=== PATIENT | female | born 1965 | race Asian ===

== ENCOUNTER 2016-11-09 23:54 | Emergency (ER) | payer OTHER ==
[~2016-11-09] VITALS: Ht 157.5 cm; Wt 47.7 kg
[~2016-11-09 23:54] MED LIST: OLAN5TAB2 PO
[2016-11-09 23:59] VITALS: BP 108/62
[2016-11-10] MEDS ORDERED: OLANZapine 5 MG TABLET PO ONE (03:00)
== END 2016-11-10 03:02 | disposition home or self-care (01) ==
LOC: EMS 23:56
DX: F20.9 Schizophrenia, unspecified (principal)
CPT/HCPCS: 99284

== ENCOUNTER 2016-11-15 18:32 | Inpatient (IN) | payer MEDICAID, OTHER ==
[~2016-11-15] VITALS: Ht 157.5 cm; Wt 49.6 kg
[2016-11-15] MEDS ORDERED: HALOPERIDOL 5 MG TABLET PO PRN (19:45)
[2016-11-15] MEDS ORDERED: LORazepam 2 MG TABLET PO PRN (19:45)
[2016-11-15] MEDS ORDERED: INFLUENZA VIRUS VACCINE QVS 2016-17 (3YR+)/PF 60 MCG/0.5 ML SYRINGE IM ONE (19:45)
[2016-11-15] MEDS ORDERED: ZOLPIDEM TARTRATE 10 MG TABLET PO PRN (19:45)
[2016-11-15 19:51] VITALS: BP 132/81
[2016-11-15 20:09] VITALS: BP 126/72
[2016-11-16 01:34] VITALS: BP 90/60
[2016-11-16 08:36] VITALS: BP 105/66
[2016-11-16] MEDS ORDERED: DIVALPROEX SODIUM 500 MG DR TABLET PO SCH (10:15)
[2016-11-16] MEDS ORDERED: OLAN7.5T2 PO (12:26)
[2016-11-16] MEDS ORDERED: DIVA500T35 PO (12:27)
[2016-11-16] MEDS ORDERED: OLANZapine 7.5 MG TABLET PO SCH (21:00)
== END 2016-11-16 14:32 | disposition home or self-care (01) | DRG 750 ==
LOC: B3A 19:38 → EDSTATUS 19:42
PROVIDERS: ADMIT Psychiatry & Neurology Psychiatry; ATTEND Psychiatry & Neurology Psychiatry
DX: F20.0 Paranoid schizophrenia (principal); D64.9 Anemia, unspecified; F25.9 Schizoaffective disorder, unspecified; F41.9 Anxiety disorder, unspecified; Z28.21 Immunization not carried out because of patient refusal
CPT/HCPCS: 90471

== ENCOUNTER 2016-11-19 20:05 | Emergency (ER) | payer MEDICAID, OTHER ==
[~2016-11-19] VITALS: Ht 162.6 cm; Wt 50.0 kg
[~2016-11-19 20:05] MED LIST changes: +DIVA500T35 PO; +OLAN7.5T2 PO
[2016-11-19 20:09] VITALS: BP 141/75
[2016-11-19 20:27] LABS: BASOPHILS % (AUTO) 0.9 % (0.0-2.0); EOSINOPHILS % (AUTO) 4.5 % (1.0-6.0); HEMATOCRIT 31.9 % (36-46); HEMOGLOBIN 10.4 g/dL (12.0-16.0); LYMPHOCYTES # (AUTO) 1.7 K/uL (1.0-4.8); LYMPHOCYTES % (AUTO) 33.5 % (22.0-44.0); MEAN CORPUSCULAR HEMOGLOBIN 24.5 pg (26.0-34.0); MEAN CORPUSCULAR HGB CONC 32.5 G/dL (31.0-37.0); MEAN CORPUSCULAR VOLUME 75 fL (80-100); MONOCYTES # (AUTO) 0.3 K/uL (0.1-1.0); MONOCYTES % (AUTO) 5.9 % (2.0-9.0); NEUTROPHILS # (AUTO) 2.8 K/uL (1.8-7.7); NEUTROPHILS % (AUTO) 55.2 % (40.0-70.0); PLATELET COUNT (AUTO) 294 K/uL (150-450); RED BLOOD CELL COUNT(AUTO) 4.24 MIL/uL (4.00-5.20); RED CELL DISTRIBUTION WIDTH 14.8 % (11.5-14.5); WHITE BLOOD COUNT (AUTO) 5.1 K/uL (4.5-11.0)
[2016-11-19 20:35] LABS: ANION GAP 4 mmol/L (8-16); CALCIUM, TOTAL 8.7 mg/dL (8.8-10.5); CARBON DIOXIDE 30 mmol/L (22-29); CHLORIDE 105 mmol/L (98-107); CREATININE 0.65 mg/dL (0.60-1.30); GLOMERULAR FILTR. RATE CALC > 60 mL/min (>60); SODIUM SERUM 139 mmol/L (136-145); UREA NITROGEN, BLOOD 10 mg/dL (7-18)
[2016-11-19 20:41] LABS: ALANINE AMINOTRANSFERASE 23 U/L (12-78); ALBUMIN 3.7 g/dL (3.4-5.0); ASPARTATE AMINOTRANSFERASE 20 U/L (15-37); BILIRUBIN,TOTAL 0.4 mg/dL (0.1-1.0)
[2016-11-19 21:01] LABS: RBC MORPHOLOGY COMMENT ABNORMAL RBC MORPH
[2016-11-19] MEDS ORDERED: OLANZapine 5 MG TABLET PO ONE (23:45)
== END 2016-11-20 02:05 | disposition left against medical advice (07) ==
LOC: EMS 20:07
DX: F20.0 Paranoid schizophrenia (principal); R44.0 Auditory hallucinations
CPT/HCPCS: 36415; 80053; 85025; 99284; G0480

== ENCOUNTER 2016-11-25 22:00 | Inpatient (IN) | payer MEDICAID, OTHER ==
[~2016-11-25] VITALS: Ht 162.6 cm; Wt 48.3 kg
[~2016-11-25 22:00] MED LIST changes: -OLAN5TAB2 PO
[2016-11-26] MEDS ORDERED: ZOLPIDEM TARTRATE 10 MG TABLET PO PRN (08:00)
[2016-11-26] MEDS ORDERED: HALOPERIDOL 5 MG TABLET PO PRN (08:00)
[2016-11-26] MEDS ORDERED: LORazepam 1 MG TABLET PO PRN (08:00)
[2016-11-26 12:42] VITALS: BP 80/37
[2016-11-26] MEDS ORDERED: INFLUENZA VIRUS VACCINE QVS 2016-17 (3YR+)/PF 60 MCG/0.5 ML SYRINGE IM ONE (13:00)
[2016-11-26] MEDS: DIVALPROEX SODIUM 500 MG DR TABLET PO SCH (17:00)
[2016-11-26 18:15] VITALS: BP 110/63
[2016-11-26 21:06] VITALS: BP 108/65
[2016-11-26] MEDS: OLANZapine 7.5 MG TABLET PO SCH (21:07)
[2016-11-27 07:00] VITALS: BP 106/57
[2016-11-27 07:03] VITALS: BP 100/61
[2016-11-27 08:25] LABS: ALANINE AMINOTRANSFERASE 16 U/L (12-78); ALBUMIN 3.1 g/dL (3.4-5.0); ANION GAP 7 mmol/L (8-16); ASPARTATE AMINOTRANSFERASE 14 U/L (15-37); BILIRUBIN,TOTAL 0.2 mg/dL (0.1-1.0); CALCIUM, TOTAL 8.3 mg/dL (8.8-10.5); CARBON DIOXIDE 27 mmol/L (22-29); CHLORIDE 109 mmol/L (98-107); CREATININE 0.86 mg/dL (0.60-1.30); GLOMERULAR FILTR. RATE CALC > 60 mL/min (>60); POTASSIUM 4.1 mmol/L (3.5-5.1); SODIUM SERUM 143 mmol/L (136-145); TOTAL PROTEIN, SERUM 6.5 g/dL (6.4-8.2); UREA NITROGEN, BLOOD 16 mg/dL (7-18)
[2016-11-27 08:29] LABS: BASOPHILS % (AUTO) 0.9 % (0.0-2.0); EOSINOPHILS % (AUTO) 4.7 % (1.0-6.0); HEMOGLOBIN 10.3 g/dL (12.0-16.0); LYMPHOCYTES # (AUTO) 1.5 K/uL (1.0-4.8); LYMPHOCYTES % (AUTO) 33.9 % (22.0-44.0); MEAN CORPUSCULAR HEMOGLOBIN 24.1 pg (26.0-34.0); MEAN CORPUSCULAR HGB CONC 32.3 G/dL (31.0-37.0); MEAN CORPUSCULAR VOLUME 75 fL (80-100); MONOCYTES # (AUTO) 0.3 K/uL (0.1-1.0); MONOCYTES % (AUTO) 6.9 % (2.0-9.0); NEUTROPHILS # (AUTO) 2.4 K/uL (1.8-7.7); NEUTROPHILS % (AUTO) 53.6 % (40.0-70.0); PLATELET COUNT (AUTO) 298 K/uL (150-450); RED BLOOD CELL COUNT(AUTO) 4.29 MIL/uL (4.00-5.20); RED CELL DISTRIBUTION WIDTH 14.6 % (11.5-14.5); WHITE BLOOD COUNT (AUTO) 4.5 K/uL (4.5-11.0)
[2016-11-27 08:55] VITALS: BP 97/53
[2016-11-27] MEDS: DIVALPROEX SODIUM 500 MG DR TABLET PO SCH ×2 (09:19→16:06)
[2016-11-27 12:48] LABS: RBC MORPHOLOGY COMMENT ABNORMAL RBC MORPH
[2016-11-27 13:13] VITALS: BP 103/60
[2016-11-27 16:11] VITALS: BP 103/63
[2016-11-27 20:30] VITALS: BP 103/65
[2016-11-27] MEDS: OLANZapine 7.5 MG TABLET PO SCH (20:35)
[2016-11-28 06:56] VITALS: BP 103/61
[2016-11-28] MEDS: DIVALPROEX SODIUM 500 MG DR TABLET PO SCH ×2 (08:03→16:21)
[2016-11-28 08:53] VITALS: BP 133/52
[2016-11-28 17:51] VITALS: BP 101/60
[2016-11-28] MEDS: OLANZapine 7.5 MG TABLET PO SCH (20:02)
[2016-11-29 06:43] VITALS: BP 104/58
[2016-11-29 08:32] VITALS: BP 100/72
[2016-11-29] MEDS: DIVALPROEX SODIUM 500 MG DR TABLET PO SCH ×2 (09:54→16:31)
[2016-11-29 16:10] VITALS: BP 125/60
[2016-11-29] MEDS: OLANZapine 7.5 MG TABLET PO SCH (20:49)
[2016-11-30 06:30] VITALS: BP 103/60
[2016-11-30] MEDS: DIVALPROEX SODIUM 500 MG DR TABLET PO SCH ×2 (08:11→16:03)
[2016-11-30 08:22] VITALS: BP 108/59
[2016-11-30 16:21] VITALS: BP 93/54
[2016-11-30] MEDS: OLANZapine 7.5 MG TABLET PO SCH (20:03)
[2016-12-01 08:40] VITALS: BP 98/52
[2016-12-01] MEDS: DIVALPROEX SODIUM 500 MG DR TABLET PO SCH (08:57)
== END 2016-12-01 13:43 | disposition home or self-care (01) | DRG 750 ==
LOC: B3A 11-26 08:07
PROVIDERS: ADMIT Psychiatry & Neurology Psychiatry; ATTEND Psychiatry & Neurology Psychiatry
DX: F20.9 Schizophrenia, unspecified (principal); I95.9 Hypotension, unspecified; F25.9 Schizoaffective disorder, unspecified; D64.9 Anemia, unspecified; F20.0 Paranoid schizophrenia; F41.9 Anxiety disorder, unspecified; Z59.0 Homelessness; Z28.21 Immunization not carried out because of patient refusal

== ENCOUNTER 2016-11-26 12:52 | Emergency (ER) | payer MEDICAID, OTHER ==
[~2016-11-26] VITALS: Ht 154.9 cm; Wt 60.0 kg
[2016-11-26 13:23] LABS: BASOPHILS % (AUTO) 0.6 % (0.0-2.0); EOSINOPHILS % (AUTO) 3.6 % (1.0-6.0); HEMATOCRIT 33.2 % (36-46); HEMOGLOBIN 10.7 g/dL (12.0-16.0); LYMPHOCYTES # (AUTO) 1.1 K/uL (1.0-4.8); LYMPHOCYTES % (AUTO) 25.1 % (22.0-44.0); MEAN CORPUSCULAR HEMOGLOBIN 24.2 pg (26.0-34.0); MEAN CORPUSCULAR HGB CONC 32.3 G/dL (31.0-37.0); MEAN CORPUSCULAR VOLUME 75 fL (80-100); MONOCYTES # (AUTO) 0.3 K/uL (0.1-1.0); MONOCYTES % (AUTO) 7.5 % (2.0-9.0); NEUTROPHILS # (AUTO) 2.8 K/uL (1.8-7.7); NEUTROPHILS % (AUTO) 63.2 % (40.0-70.0); PLATELET COUNT (AUTO) 316 K/uL (150-450); RED BLOOD CELL COUNT(AUTO) 4.45 MIL/uL (4.00-5.20); RED CELL DISTRIBUTION WIDTH 14.5 % (11.5-14.5); WHITE BLOOD COUNT (AUTO) 4.5 K/uL (4.5-11.0)
[2016-11-26 13:35] LABS: ANION GAP 6 mmol/L (8-16); CALCIUM, TOTAL 9.1 mg/dL (8.8-10.5); CARBON DIOXIDE 33 mmol/L (22-29); CHLORIDE 105 mmol/L (98-107); CREATININE 0.91 mg/dL (0.60-1.30); GLOMERULAR FILTR. RATE CALC > 60 mL/min (>60); POTASSIUM 3.6 mmol/L (3.5-5.1); SODIUM SERUM 144 mmol/L (136-145); UREA NITROGEN, BLOOD 13 mg/dL (7-18)
[2016-11-26 13:41] LABS: ALANINE AMINOTRANSFERASE 18 U/L (12-78); ALBUMIN 3.6 g/dL (3.4-5.0); ASPARTATE AMINOTRANSFERASE 14 U/L (15-37); BILIRUBIN,TOTAL 0.7 mg/dL (0.1-1.0); TOTAL PROTEIN, SERUM 7.3 g/dL (6.4-8.2)
[2016-11-26] MEDS ORDERED: SODIUM CHLORIDE 0.9% 1,000 ML IV ONE (14:45)
[2016-11-26 17:30] VITALS: BP 112/68
== END 2016-11-26 17:53 | disposition home or self-care (01) ==
LOC: EMS 12:54
DX: E86.0 Dehydration (principal); F20.9 Schizophrenia, unspecified
CPT/HCPCS: 36415; 80053; 80307; 85025; 93005; 96360; 99285; G0480; J7030

== ENCOUNTER 2016-12-04 19:02 | Emergency (ER) | payer OTHER ==
[~2016-12-04] VITALS: Ht 162.6 cm; Wt 47.7 kg
[2016-12-04 20:45] VITALS: BP 110/60
[2016-12-04] MEDS: OLANZapine 5 MG TABLET PO ONE ×3 (21:04→21:13)
== END 2016-12-04 21:42 | disposition home or self-care (01) ==
LOC: EMS 19:05
DX: F20.0 Paranoid schizophrenia (principal); R51 Headache
CPT/HCPCS: 99284

== ENCOUNTER 2016-12-06 06:47 | Emergency (ER) | payer OTHER ==
[~2016-12-06] VITALS: Ht 162.6 cm; Wt 47.5 kg
[2016-12-06 06:51] VITALS: BP 112/65
== END 2016-12-06 07:31 | disposition left against medical advice (07) ==
LOC: EMS 06:48
DX: F20.0 Paranoid schizophrenia (principal)
CPT/HCPCS: 99281

== ENCOUNTER 2016-12-09 20:20 | Emergency (ER) | payer OTHER ==
[~2016-12-09] VITALS: Ht 152.4 cm; Wt 50.0 kg
[2016-12-09 20:22] VITALS: BP 135/86
== END 2016-12-09 20:54 | disposition left against medical advice (07) ==
LOC: EMS 20:21
DX: R44.0 Auditory hallucinations (principal); R52 Pain, unspecified; F20.9 Schizophrenia, unspecified; Z53.21 Procedure and treatment not carried out due to patient leaving prior to being seen by health care provider

== ENCOUNTER 2016-12-14 00:12 | Emergency (ER) | payer OTHER ==
[~2016-12-14] VITALS: Ht 162.6 cm; Wt 47.7 kg
[2016-12-14] MEDS ORDERED: OLANZapine 5 MG TABLET PO ONE (04:30)
[2016-12-14 04:58] VITALS: BP 117/70
== END 2016-12-14 05:00 | disposition home or self-care (01) ==
LOC: EMS 00:15
DX: F20.9 Schizophrenia, unspecified (principal)
CPT/HCPCS: 99284

== ENCOUNTER 2016-12-16 18:48 | Emergency (ER) | payer OTHER ==
[~2016-12-16] VITALS: Ht 162.6 cm; Wt 47.7 kg
[2016-12-16 19:40] LABS: BASOPHILS % (AUTO) 0.8 % (0.0-2.0); EOSINOPHILS % (AUTO) 5.6 % (1.0-6.0); HEMATOCRIT 32.2 % (36-46); HEMOGLOBIN 10.1 g/dL (12.0-16.0); LYMPHOCYTES # (AUTO) 1.9 K/uL (1.0-4.8); LYMPHOCYTES % (AUTO) 31.5 % (22.0-44.0); MEAN CORPUSCULAR HEMOGLOBIN 23.6 pg (26.0-34.0); MEAN CORPUSCULAR HGB CONC 31.6 G/dL (31.0-37.0); MEAN CORPUSCULAR VOLUME 75 fL (80-100); MONOCYTES # (AUTO) 0.4 K/uL (0.1-1.0); MONOCYTES % (AUTO) 6.8 % (2.0-9.0); NEUTROPHILS # (AUTO) 3.3 K/uL (1.8-7.7); NEUTROPHILS % (AUTO) 55.3 % (40.0-70.0); PLATELET COUNT (AUTO) 283 K/uL (150-450); RED BLOOD CELL COUNT(AUTO) 4.29 MIL/uL (4.00-5.20); RED CELL DISTRIBUTION WIDTH 15.7 % (11.5-14.5)
[2016-12-16 20:00] LABS: ANION GAP 6 mmol/L (8-16); CALCIUM, TOTAL 8.4 mg/dL (8.8-10.5); CARBON DIOXIDE 29 mmol/L (22-29); CHLORIDE 106 mmol/L (98-107); CREATININE 0.79 mg/dL (0.60-1.30); GLOMERULAR FILTR. RATE CALC > 60 mL/min (>60); POTASSIUM 3.8 mmol/L (3.5-5.1); SODIUM SERUM 141 mmol/L (136-145); UREA NITROGEN, BLOOD 11 mg/dL (7-18)
[2016-12-16 20:04] LABS: ALANINE AMINOTRANSFERASE 19 U/L (12-78); ALBUMIN 3.5 g/dL (3.4-5.0); ASPARTATE AMINOTRANSFERASE 16 U/L (15-37); BILIRUBIN,TOTAL 0.5 mg/dL (0.1-1.0); TOTAL PROTEIN, SERUM 6.9 g/dL (6.4-8.2)
[2016-12-16 20:26] LABS: VALPROIC ACID 3 mcg/mL (50-100)
[2016-12-16 20:58] LABS: RBC MORPHOLOGY COMMENT ABNORMAL RBC MORPH
[2016-12-16 23:43] VITALS: BP 120/63
[2016-12-17] MEDS ORDERED: OLANZapine 5 MG TABLET PO ONE
== END 2016-12-17 00:03 | disposition home or self-care (01) ==
LOC: EMS 18:56
DX: F20.9 Schizophrenia, unspecified (principal)
CPT/HCPCS: 36415; 80053; 80164; 80307; 85025; 99284; G0480

== ENCOUNTER 2016-12-17 20:34 | Emergency (ER) | payer OTHER ==
[~2016-12-17] VITALS: Ht 162.6 cm; Wt 47.7 kg
[2016-12-17] MEDS ORDERED: OLANZapine 5 MG TABLET PO ONE (22:45)
[2016-12-17] MEDS ORDERED: LORazepam 1 MG TABLET PO ONE (22:45)
[2016-12-18 02:25] VITALS: BP 110/62
== END 2016-12-18 02:25 | disposition home or self-care (01) ==
LOC: EMS 20:41
DX: F20.0 Paranoid schizophrenia (principal)
CPT/HCPCS: 99283; 99284

== ENCOUNTER 2016-12-19 19:46 | Emergency (ER) | payer OTHER ==
[~2016-12-19] VITALS: Ht 167.6 cm; Wt 54.0 kg
[2016-12-20 02:55] VITALS: BP 129/74
[2016-12-20] MEDS ORDERED: ACETAMINOPHEN 500 MG TABLET PO ONE (03:00)
[2016-12-20] MEDS ORDERED: OLANZapine 5 MG TABLET PO ONE (03:00)
== END 2016-12-20 03:13 | disposition home or self-care (01) ==
LOC: EMS 19:48
DX: F20.0 Paranoid schizophrenia (principal); M79.671 Pain in right foot; M79.672 Pain in left foot
CPT/HCPCS: 99284

== ENCOUNTER 2016-12-21 18:29 | Emergency (ER) | payer MEDICAID ==
[~2016-12-21] VITALS: Ht 154.9 cm; Wt 47.7 kg
[2016-12-21 18:40] VITALS: BP 103/66
[2016-12-21 20:12] LABS: BASOPHILS % (AUTO) 1.2 % (0.0-2.0); EOSINOPHILS % (AUTO) 6.7 % (1.0-6.0); HEMATOCRIT 30.1 % (36-46); HEMOGLOBIN 9.4 g/dL (12.0-16.0); LYMPHOCYTES # (AUTO) 1.5 K/uL (1.0-4.8); LYMPHOCYTES % (AUTO) 30.1 % (22.0-44.0); MEAN CORPUSCULAR HEMOGLOBIN 23.5 pg (26.0-34.0); MEAN CORPUSCULAR HGB CONC 31.2 G/dL (31.0-37.0); MEAN CORPUSCULAR VOLUME 75 fL (80-100); MONOCYTES # (AUTO) 0.4 K/uL (0.1-1.0); MONOCYTES % (AUTO) 8.1 % (2.0-9.0); NEUTROPHILS # (AUTO) 2.7 K/uL (1.8-7.7); NEUTROPHILS % (AUTO) 53.9 % (40.0-70.0); PLATELET COUNT (AUTO) 265 K/uL (150-450); RED CELL DISTRIBUTION WIDTH 15.3 % (11.5-14.5); WHITE BLOOD COUNT (AUTO) 4.9 K/uL (4.5-11.0)
[2016-12-21 20:26] LABS: ANION GAP 8 mmol/L (8-16); CALCIUM, TOTAL 8.3 mg/dL (8.8-10.5); CARBON DIOXIDE 29 mmol/L (22-29); CHLORIDE 108 mmol/L (98-107); CREATININE 0.77 mg/dL (0.60-1.30); GLOMERULAR FILTR. RATE CALC > 60 mL/min (>60); POTASSIUM 3.8 mmol/L (3.5-5.1); SODIUM SERUM 145 mmol/L (136-145); UREA NITROGEN, BLOOD 14 mg/dL (7-18)
[2016-12-21 20:32] LABS: ALANINE AMINOTRANSFERASE 17 U/L (12-78); ALBUMIN 3.3 g/dL (3.4-5.0); ASPARTATE AMINOTRANSFERASE 14 U/L (15-37); BILIRUBIN,TOTAL 0.4 mg/dL (0.1-1.0); TOTAL PROTEIN, SERUM 6.6 g/dL (6.4-8.2)
[2016-12-21 20:51] LABS: RBC MORPHOLOGY COMMENT ABNORMAL RBC MORPH
== END 2016-12-21 22:24 | disposition left against medical advice (07) ==
LOC: EMS 18:31
DX: Z00.8 Encounter for other general examination (principal); Z53.21 Procedure and treatment not carried out due to patient leaving prior to being seen by health care provider

== ENCOUNTER 2016-12-23 16:07 | Inpatient (IN) | payer MEDICAID ==
[~2016-12-23] VITALS: Ht 157.5 cm; Wt 46.4 kg
[2016-12-24] MEDS ORDERED: ZOLPIDEM TARTRATE 10 MG TABLET PO PRN (04:00)
[2016-12-24] MEDS ORDERED: LORazepam 1 MG TABLET PO PRN (04:00)
[2016-12-24] MEDS ORDERED: OLANZapine 5 MG RAPDIS TABLET PO PRN (04:00)
[2016-12-24] MEDS ORDERED: HALOPERIDOL 5 MG TABLET PO PRN (04:00)
[2016-12-24 04:57] VITALS: BP 115/63
[2016-12-24] MEDS ORDERED: INFLUENZA VIRUS VACCINE QVS 2016-17 (3YR+)/PF 60 MCG/0.5 ML SYRINGE IM ONE (07:15)
[2016-12-24] MEDS ORDERED: OLAN7.5T2 PO (09:18)
[2016-12-24] MEDS ORDERED: IBUPROFEN 400 MG TABLET PO PRN (11:30)
[2016-12-24] MEDS ORDERED: ACETAMINOPHEN 325 MG TABLET PO PRN (11:30)
[2016-12-24 17:15] VITALS: BP 104/64
[2016-12-24] MEDS: DIVALPROEX SODIUM 500 MG DR TABLET PO SCH (17:15)
[2016-12-24 20:49] VITALS: BP 103/65
[2016-12-24] MEDS: OLANZapine 10 MG TABLET PO SCH ×2 (20:49→21:00)
[2016-12-25] MEDS ORDERED: ACETAMINOPHEN 325 MG TABLET PO PRN (07:30)
[2016-12-25] MEDS ORDERED: IBUPROFEN 400 MG TABLET PO PRN (07:30)
[2016-12-25 08:41] VITALS: BP 107/66
[2016-12-25] MEDS: DIVALPROEX SODIUM 500 MG DR TABLET PO SCH ×2 (09:53→17:00)
[2016-12-25 17:10] VITALS: BP 100/60
[2016-12-25 20:37] VITALS: BP 101/76
[2016-12-25] MEDS: OLANZapine 10 MG TABLET PO SCH (20:37)
[2016-12-26] MEDS: DIVALPROEX SODIUM 500 MG DR TABLET PO SCH ×2 (08:04→16:53)
[2016-12-26 08:36] VITALS: BP 100/59
[2016-12-26 08:59] LABS: BASOPHILS # (AUTO) 0.03 K/uL (0.00-0.20); BASOPHILS % (AUTO) 0.6 % (0.0-2.0); EOSINOPHILS # (AUTO) 0.29 K/uL (0.00-0.70); EOSINOPHILS % (AUTO) 5.92 % (1.0-6.0); HEMATOCRIT 34.6 % (36-46); HEMOGLOBIN 11.1 g/dL (12.0-16.0); LYMPHOCYTES # (AUTO) 1.4 K/uL (1.0-4.8); LYMPHOCYTES % (AUTO) 27.8 % (22.0-44.0); MEAN CORPUSCULAR HEMOGLOBIN 23.6 pg (26.0-34.0); MEAN CORPUSCULAR HGB CONC 32.1 G/dL (31.0-37.0); MEAN CORPUSCULAR VOLUME 74 fL (80-100); MONOCYTES # (AUTO) 0.4 K/uL (0.1-1.0); MONOCYTES % (AUTO) 7.9 % (2.0-9.0); NEUTROPHILS # (AUTO) 2.8 K/uL (1.8-7.7); NEUTROPHILS % (AUTO) 57.9 % (40.0-70.0); PLATELET COUNT (AUTO) 245 K/uL (150-450); RED BLOOD CELL COUNT(AUTO) 4.71 MIL/uL (4.00-5.20); RED CELL DISTRIBUTION WIDTH 15.7 % (11.5-14.5); WHITE BLOOD COUNT (AUTO) 4.9 K/uL (4.5-11.0)
[2016-12-26 09:05] LABS: HEMOGLOBIN A1C 5.3 % (4.5-6.2)
[2016-12-26 09:28] LABS: ALANINE AMINOTRANSFERASE 17 U/L (12-78); ALBUMIN 3.3 g/dL (3.4-5.0); ANION GAP 7 mmol/L (8-16); ASPARTATE AMINOTRANSFERASE 14 U/L (15-37); BILIRUBIN,TOTAL 0.7 mg/dL (0.1-1.0); CALCIUM, TOTAL 8.8 mg/dL (8.8-10.5); CARBON DIOXIDE 33 mmol/L (22-29); CHLORIDE 108 mmol/L (98-107); CHOL/HDL RATIO 2.4 (3.9-5.7); CREATININE 0.73 mg/dL (0.60-1.30); GLOMERULAR FILTR. RATE CALC > 60 mL/min (>60); SODIUM SERUM 148 mmol/L (136-145); THYROID STIMULATING HORMONE 2.17 uIU/mL (0.36-3.74); TOTAL PROTEIN, SERUM 6.5 g/dL (6.4-8.2); UREA NITROGEN, BLOOD 10 mg/dL (7-18)
[2016-12-26 09:52] LABS: RBC MORPHOLOGY COMMENT ABNORMAL RBC MORPH
[2016-12-26 16:26] VITALS: BP 99/59
[2016-12-26] MEDS: OLANZapine 10 MG TABLET PO SCH (20:25)
[2016-12-27] MEDS: FERROUS SULFATE 325 MG EC TABLET PO SCH (06:49)
[2016-12-27] MEDS: DIVALPROEX SODIUM 500 MG DR TABLET PO SCH ×2 (08:33→16:00)
[2016-12-27 08:50] VITALS: BP 106/69
[2016-12-27 18:07] VITALS: BP 110/68
[2016-12-27] MEDS: OLANZapine 10 MG TABLET PO SCH (21:00)
[2016-12-28 06:18] VITALS: BP 105/62
[2016-12-28] MEDS: FERROUS SULFATE 325 MG EC TABLET PO SCH (06:36)
[2016-12-28] MEDS: DIVALPROEX SODIUM 500 MG DR TABLET PO SCH ×2 (08:34→16:39)
[2016-12-28 16:30] VITALS: BP 118/69
[2016-12-28] MEDS: OLANZapine 10 MG TABLET PO SCH (20:25)
[2016-12-29] MEDS: FERROUS SULFATE 325 MG EC TABLET PO SCH (06:27)
[2016-12-29] MEDS: DIVALPROEX SODIUM 500 MG DR TABLET PO SCH ×2 (08:28→16:11)
[2016-12-29 13:10] VITALS: BP 109/75
[2016-12-29 16:40] VITALS: BP 103/64
[2016-12-29] MEDS: OLANZapine 10 MG TABLET PO SCH (20:29)
[2016-12-30 06:20] VITALS: BP 106/68
[2016-12-30] MEDS: FERROUS SULFATE 325 MG EC TABLET PO SCH (06:39)
[2016-12-30] MEDS: DIVALPROEX SODIUM 500 MG DR TABLET PO SCH ×2 (08:37→16:15)
[2016-12-30 09:11] VITALS: BP 100/60
[2016-12-30 16:11] VITALS: BP 103/63
[2016-12-30] MEDS: OLANZapine 10 MG TABLET PO SCH (20:16)
[2016-12-31 00:01] VITALS: BP 107/76
[2016-12-31] MEDS: FERROUS SULFATE 325 MG EC TABLET PO SCH (06:32)
[2016-12-31 08:16] VITALS: BP 100/61
[2016-12-31] MEDS: DIVALPROEX SODIUM 500 MG DR TABLET PO SCH ×2 (08:40→17:00)
[2016-12-31 16:25] VITALS: BP 111/63
[2016-12-31] MEDS: OLANZapine 10 MG TABLET PO SCH (20:37)
[2017-01-01 06:04] VITALS: BP 103/67
[2017-01-01] MEDS: FERROUS SULFATE 325 MG EC TABLET PO SCH (06:44)
[2017-01-01] MEDS: DIVALPROEX SODIUM 500 MG DR TABLET PO SCH (08:34)
[2017-01-01 08:42] VITALS: BP 107/74
[2017-01-01] MEDS ORDERED: FERR-89 PO (11:53)
== END 2017-01-01 15:30 | disposition home or self-care (01) | DRG 750 ==
LOC: B3A 12-24 04:00
PROVIDERS: ADMIT Psychiatry & Neurology Psychiatry; ATTEND Psychiatry & Neurology Psychiatry
DX: F20.0 Paranoid schizophrenia (principal); Z59.0 Homelessness; D64.9 Anemia, unspecified; F41.9 Anxiety disorder, unspecified; Z28.21 Immunization not carried out because of patient refusal
CPT/HCPCS: 83036; 84439; 84443; 86592; 87081

== ENCOUNTER 2017-07-05 22:28 | Inpatient (IN) | payer MEDICAID ==
[~2017-07-05] VITALS: Ht 162.6 cm; Wt 41.7 kg
[~2017-07-05 22:28] MED LIST changes: +FERR-89 PO
[2017-07-06 13:48] VITALS: BP 92/56
[2017-07-06] MEDS ORDERED: LORazepam 1 MG TABLET PO PRN (14:00)
[2017-07-06] MEDS ORDERED: HALOPERIDOL 5 MG TABLET PO PRN (14:00)
[2017-07-06] MEDS ORDERED: ZOLPIDEM TARTRATE 10 MG TABLET PO PRN (14:00)
[2017-07-06 14:30] VITALS: BP 97/59
[2017-07-06] MEDS ORDERED: TUBERCULIN, PURIFIED PROTEIN DERIVATIVE 5 TU/0.1 ML SYG ID ONE (14:45)
[2017-07-06 16:34] VITALS: BP 100/60
[2017-07-06] MEDS: DIVALPROEX SODIUM 500 MG DR TABLET PO SCH (17:38)
[2017-07-06] MEDS: OLANZapine 10 MG TABLET PO SCH (20:25)
[2017-07-07 00:11] VITALS: BP 104/63
[2017-07-07 07:54] LABS: BASOPHILS % (AUTO) 1.1 % (0.0-2.0); EOSINOPHILS % (AUTO) 3.1 % (1.0-6.0); HEMATOCRIT 32.2 % (36-46); HEMOGLOBIN 10.6 g/dL (12.0-16.0); LYMPHOCYTES # (AUTO) 1.7 K/uL (1.0-4.8); LYMPHOCYTES % (AUTO) 50.6 % (22.0-44.0); MEAN CORPUSCULAR HEMOGLOBIN 27.2 pg (26.0-34.0); MEAN CORPUSCULAR VOLUME 82 fL (80-100); MONOCYTES # (AUTO) 0.4 K/uL (0.1-1.0); MONOCYTES % (AUTO) 10.5 % (2.0-9.0); NEUTROPHILS # (AUTO) 1.2 K/uL (1.8-7.7); NEUTROPHILS % (AUTO) 34.7 % (40.0-70.0); PLATELET COUNT (AUTO) 231 K/uL (150-450); RED BLOOD CELL COUNT(AUTO) 3.92 MIL/uL (4.00-5.20); RED CELL DISTRIBUTION WIDTH 15.4 % (11.5-14.5); WHITE BLOOD COUNT (AUTO) 3.4 K/uL (4.5-11.0)
[2017-07-07 08:12] LABS: HEMOGLOBIN A1C 5.7 % (4.5-6.2)
[2017-07-07 08:20] LABS: ALANINE AMINOTRANSFERASE 21 U/L (12-78); ALBUMIN 3.1 g/dL (3.4-5.0); ANION GAP 4 mmol/L (8-16); ASPARTATE AMINOTRANSFERASE 15 U/L (15-37); BILIRUBIN,TOTAL 0.6 mg/dL (0.1-1.0); CALCIUM, TOTAL 8.3 mg/dL (8.8-10.5); CARBON DIOXIDE 31 mmol/L (22-29); CHLORIDE 111 mmol/L (98-107); CHOL/HDL RATIO 1.7 (3.9-5.7); CREATININE 0.72 mg/dL (0.60-1.30); GLOMERULAR FILTR. RATE CALC > 60 mL/min (>60); POTASSIUM 4.1 mmol/L (3.5-5.1); SODIUM SERUM 146 mmol/L (136-145); THYROID STIMULATING HORMONE 2.43 uIU/mL (0.36-3.74); TOTAL PROTEIN, SERUM 5.7 g/dL (6.4-8.2); UREA NITROGEN, BLOOD 12 mg/dL (7-18); VALPROIC ACID 51 mcg/mL (50-100)
[2017-07-07 09:10] VITALS: BP 101/64
[2017-07-07] MEDS: DIVALPROEX SODIUM 500 MG DR TABLET PO SCH ×2 (09:15→17:01)
[2017-07-07] MEDS ORDERED: IBUPROFEN 400 MG TABLET PO PRN (11:15)
[2017-07-07] MEDS ORDERED: ACETAMINOPHEN 325 MG TABLET PO PRN (11:15)
[2017-07-07 16:40] VITALS: BP 107/66
[2017-07-07] MEDS: OLANZapine 10 MG TABLET PO SCH (20:30)
[2017-07-08 06:05] VITALS: BP 106/62
[2017-07-08 07:15] LABS: HEMOGLOBIN A1C 5.7 % (4.5-6.2)
[2017-07-08] MEDS: FERROUS SULFATE 325 MG EC TABLET PO SCH (07:22)
[2017-07-08 07:35] LABS: CHOL/HDL RATIO 1.8 (3.9-5.7); THYROID STIMULATING HORMONE 3.88 uIU/mL (0.36-3.74)
[2017-07-08] MEDS: DIVALPROEX SODIUM 500 MG DR TABLET PO SCH ×2 (09:21→16:51)
[2017-07-08 09:49] VITALS: BP 101/66
[2017-07-08 16:30] VITALS: BP 100/63
[2017-07-08] MEDS: OLANZapine 10 MG TABLET PO SCH (20:11)
[2017-07-09 06:15] VITALS: BP 107/65
[2017-07-09] MEDS: FERROUS SULFATE 325 MG EC TABLET PO SCH (06:15)
[2017-07-09 08:00] VITALS: BP 105/65
[2017-07-09] MEDS: DIVALPROEX SODIUM 500 MG DR TABLET PO SCH ×2 (09:00→16:11)
[2017-07-09 16:30] VITALS: BP 102/62
[2017-07-09] MEDS: OLANZapine 10 MG TABLET PO SCH (20:06)
[2017-07-10] VITALS: BP 104/74
[2017-07-10] MEDS: FERROUS SULFATE 325 MG EC TABLET PO SCH (07:15)
[2017-07-10 08:31] VITALS: BP 102/69
[2017-07-10] MEDS: DIVALPROEX SODIUM 500 MG DR TABLET PO SCH ×3 (09:00→16:40)
[2017-07-10 16:48] VITALS: BP 107/64
[2017-07-10] MEDS: OLANZapine 10 MG TABLET PO SCH (20:00)
[2017-07-11] MEDS: FERROUS SULFATE 325 MG EC TABLET PO SCH (06:30)
[2017-07-11 06:48] VITALS: BP 107/63
[2017-07-11] MEDS: DIVALPROEX SODIUM 500 MG DR TABLET PO SCH ×2 (08:24→16:04)
[2017-07-11 08:40] VITALS: BP 105/70
[2017-07-11 16:30] VITALS: BP 102/68
[2017-07-11] MEDS: OLANZapine 10 MG TABLET PO SCH (20:31)
[2017-07-12 05:08] VITALS: BP 97/60
[2017-07-12] MEDS: FERROUS SULFATE 325 MG EC TABLET PO SCH (06:44)
[2017-07-12] MEDS: DIVALPROEX SODIUM 500 MG DR TABLET PO SCH ×2 (08:08→16:42)
[2017-07-12 08:54] VITALS: BP 103/62
[2017-07-12 16:39] VITALS: BP 108/61
[2017-07-12] MEDS: OLANZapine 10 MG TABLET PO SCH (20:30)
[2017-07-13 05:15] VITALS: BP 102/64
[2017-07-13] MEDS: FERROUS SULFATE 325 MG EC TABLET PO SCH (06:21)
[2017-07-13 08:21] VITALS: BP 112/60
[2017-07-13] MEDS: DIVALPROEX SODIUM 500 MG DR TABLET PO SCH ×2 (09:31→16:07)
[2017-07-13 16:43] VITALS: BP 100/61
[2017-07-13] MEDS: OLANZapine 10 MG TABLET PO SCH (20:05)
[2017-07-14 01:53] VITALS: BP 101/60
[2017-07-14] MEDS: FERROUS SULFATE 325 MG EC TABLET PO SCH (06:20)
[2017-07-14] MEDS: DIVALPROEX SODIUM 500 MG DR TABLET PO SCH ×2 (08:29→16:06)
[2017-07-14 08:54] VITALS: BP 90/60
[2017-07-14] MEDS ORDERED: OLAN10TA3 PO (13:48)
[2017-07-14 16:22] VITALS: BP 100/60
[2017-07-14] MEDS: OLANZapine 10 MG TABLET PO SCH (20:37)
[2017-07-15 01:25] VITALS: BP 105/61
[2017-07-15] MEDS: FERROUS SULFATE 325 MG EC TABLET PO SCH (05:57)
[2017-07-15 08:43] VITALS: BP 93/60
[2017-07-15] MEDS: DIVALPROEX SODIUM 500 MG DR TABLET PO SCH ×2 (09:22→17:07)
[2017-07-15] MEDS: ARIPiprazole 10 MG TABLET PO SCH (09:22)
[2017-07-15 16:31] VITALS: BP 100/61
[2017-07-15] MEDS: OLANZapine 10 MG TABLET PO SCH (20:56)
[2017-07-16 01:11] VITALS: BP 101/60
[2017-07-16] MEDS: FERROUS SULFATE 325 MG EC TABLET PO SCH (06:43)
[2017-07-16 08:24] VITALS: BP 100/64
[2017-07-16] MEDS: ARIPiprazole 10 MG TABLET PO SCH (09:05)
[2017-07-16] MEDS: DIVALPROEX SODIUM 500 MG DR TABLET PO SCH (09:05)
[2017-07-16] MEDS ORDERED: ARIP10TA8 PO (10:08)
[2017-07-16] MEDS ORDERED: OLAN10TA3 PO (10:09)
[2017-09-25] MEDS ORDERED: DIVA500T52 PO (19:46)
== END 2017-07-16 13:17 | disposition home or self-care (01) | DRG 750 ==
LOC: B2S 07-06 13:54
PROVIDERS: ADMIT Psychiatry & Neurology Child & Adolescent Psychiatry; ATTEND Psychiatry & Neurology Child & Adolescent Psychiatry
DX: F20.0 Paranoid schizophrenia (principal); I10 Essential (primary) hypertension; D64.9 Anemia, unspecified; D72.819 Decreased white blood cell count, unspecified
CPT/HCPCS: 83036; 84439; 84443; 99285

== ENCOUNTER 2017-07-18 12:15 | Inpatient (IN) | payer MEDICAID, OTHER ==
[~2017-07-18] VITALS: Ht 162.6 cm; Wt 43.6 kg
[~2017-07-18 12:15] MED LIST changes: +ARIP10TA8 PO; +OLAN10TA3 PO; -OLAN7.5T2 PO
[2017-07-18 12:54] LABS: BASOPHILS % (AUTO) 0.2 % (0.0-2.0); EOSINOPHILS % (AUTO) 0.4 % (1.0-6.0); HEMATOCRIT 33.3 % (36-46); LYMPHOCYTES # (AUTO) 0.7 K/uL (1.0-4.8); LYMPHOCYTES % (AUTO) 6.5 % (22.0-44.0); MEAN CORPUSCULAR HEMOGLOBIN 26.9 pg (26.0-34.0); MEAN CORPUSCULAR VOLUME 82 fL (80-100); MONOCYTES # (AUTO) 0.5 K/uL (0.1-1.0); MONOCYTES % (AUTO) 4.8 % (2.0-9.0); NEUTROPHILS # (AUTO) 8.8 K/uL (1.8-7.7); NEUTROPHILS % (AUTO) 88.1 % (40.0-70.0); PLATELET COUNT (AUTO) 180 K/uL (150-450); RBC MORPHOLOGY COMMENT NORMAL RBC MORPH; RED BLOOD CELL COUNT(AUTO) 4.09 MIL/uL (4.00-5.20); RED CELL DISTRIBUTION WIDTH 15.5 % (11.5-14.5)
[2017-07-18 13:06] LABS: ANION GAP 8 mmol/L (8-16); CALCIUM, TOTAL 8.5 mg/dL (8.8-10.5); CARBON DIOXIDE 28 mmol/L (22-29); CHLORIDE 105 mmol/L (98-107); CREATININE 1.08 mg/dL (0.60-1.30); GLOMERULAR FILTR. RATE CALC 53 mL/min (>60); POTASSIUM 3.9 mmol/L (3.5-5.1); SODIUM SERUM 141 mmol/L (136-145); UREA NITROGEN, BLOOD 17 mg/dL (7-18)
[2017-07-18 13:12] LABS: ALANINE AMINOTRANSFERASE 21 U/L (12-78); ALBUMIN 3.6 g/dL (3.4-5.0); ASPARTATE AMINOTRANSFERASE 20 U/L (15-37); BILIRUBIN,TOTAL 0.2 mg/dL (0.1-1.0)
[2017-07-18 13:24] LABS: VALPROIC ACID 21 mcg/mL (50-100)
[2017-07-18] MEDS ORDERED: HALOPERIDOL 5 MG TABLET PO ONE (15:30)
[2017-07-18] MEDS ORDERED: DOXYCYCLINE 100 MG CAPSULE PO ONE (15:30)
[2017-07-18] MEDS ORDERED: LORazepam 2 MG TABLET PO ONE (15:30)
[2017-07-18] MEDS ORDERED: SODIUM CHLORIDE 0.9% 1,000 ML IV ONE (15:30)
[2017-07-18] MEDS ORDERED: ONDANSETRON HCL 4 MG/2 ML VIAL IVP ONE (15:30)
[2017-07-18 15:33] LABS: APPEARANCE,URINE CLEAR (CLEAR); GLUCOSE, URINE (UA) NEGATIVE (NEGATIVE); KETONES,URINE NEGATIVE (NEGATIVE); LEUKOCYTE ESTERASE ,URINE NEGATIVE (NEGATIVE); OCCULT BLOOD,URINE NEGATIVE (NEGATIVE); PH,URINE 7.5 (5.0-8.0); PROTEIN,URINE NEGATIVE (NEGATIVE)
[2017-07-18 15:42] LABS: ADD UA MICROSCOPIC NO
[2017-07-18] MEDS ORDERED: HALOPERIDOL 5 MG TABLET PO PRN (16:15)
[2017-07-18] MEDS ORDERED: ZOLPIDEM TARTRATE 10 MG TABLET PO PRN (16:15)
[2017-07-18] MEDS ORDERED: LORazepam 2 MG TABLET PO PRN (16:15)
[2017-07-18] MEDS ORDERED: LORazepam 1 MG TABLET PO PRN (16:51)
[2017-07-18 17:40] VITALS: BP 112/65
[2017-07-18] MEDS: DIVALPROEX SODIUM 500 MG DR TABLET PO SCH (17:43)
[2017-07-18] MEDS ORDERED: INFLUENZA VIRUS VACCINE QVS 2017-18 (3YR+)/PF 60 MCG/0.5 ML SYRINGE IM ONE (19:30)
[2017-07-18] MEDS: OLANZapine 10 MG TABLET PO SCH (20:04)
[2017-07-19 00:10] VITALS: BP 106/69
[2017-07-19 08:32] VITALS: BP 107/67
[2017-07-19] MEDS: ARIPiprazole 10 MG TABLET PO SCH (08:37)
[2017-07-19] MEDS: DIVALPROEX SODIUM 500 MG DR TABLET PO SCH ×2 (08:37→16:11)
[2017-07-19] MEDS: DOXYCYCLINE 100 MG CAPSULE PO SCH ×2 (08:37→16:11)
[2017-07-19 08:54] LABS: CHOL/HDL RATIO 1.6 (3.9-5.7); THYROID STIMULATING HORMONE 2.91 uIU/mL (0.36-3.74)
[2017-07-19] MEDS ORDERED: ACETAMINOPHEN 325 MG TABLET PO PRN (15:00)
[2017-07-19] MEDS ORDERED: IBUPROFEN 400 MG TABLET PO PRN (15:00)
[2017-07-19 16:27] VITALS: BP 104/71
[2017-07-19] MEDS: OLANZapine 10 MG TABLET PO SCH (20:16)
[2017-07-20] MEDS: FERROUS SULFATE 325 MG EC TABLET PO SCH (06:41)
[2017-07-20 07:20] VITALS: BP 110/65
[2017-07-20] MEDS: ARIPiprazole 10 MG TABLET PO SCH (08:30)
[2017-07-20] MEDS: DOXYCYCLINE 100 MG CAPSULE PO SCH ×2 (08:30→16:17)
[2017-07-20] MEDS: DIVALPROEX SODIUM 500 MG DR TABLET PO SCH ×2 (08:30→16:17)
[2017-07-20 08:32] VITALS: BP 109/65
[2017-07-20 16:11] VITALS: BP 106/64
[2017-07-20] MEDS: OLANZapine 10 MG TABLET PO SCH (20:20)
[2017-07-21 01:11] VITALS: BP 101/60
[2017-07-21] MEDS: FERROUS SULFATE 325 MG EC TABLET PO SCH (06:39)
[2017-07-21] MEDS: ARIPiprazole 10 MG TABLET PO SCH (09:38)
[2017-07-21] MEDS: DIVALPROEX SODIUM 500 MG DR TABLET PO SCH ×2 (09:38→16:09)
[2017-07-21 10:26] VITALS: BP 103/65
[2017-07-21] MEDS: DOXYCYCLINE 100 MG CAPSULE PO SCH ×2 (10:54→16:09)
[2017-07-21 16:00] VITALS: BP 101/66
[2017-07-21] MEDS: OLANZapine 10 MG TABLET PO SCH (20:29)
[2017-07-22 00:19] VITALS: BP 100/62
[2017-07-22] MEDS: FERROUS SULFATE 325 MG EC TABLET PO SCH (06:01)
[2017-07-22] MEDS: ARIPiprazole 10 MG TABLET PO SCH (09:11)
[2017-07-22] MEDS: DOXYCYCLINE 100 MG CAPSULE PO SCH ×2 (09:12→16:10)
[2017-07-22] MEDS: DIVALPROEX SODIUM 500 MG DR TABLET PO SCH ×2 (09:12→16:10)
[2017-07-22 09:49] VITALS: BP 100/61
[2017-07-22 16:56] VITALS: BP 100/66
[2017-07-22] MEDS: OLANZapine 10 MG TABLET PO SCH (20:18)
[2017-07-23 01:47] VITALS: BP 112/63
[2017-07-23] MEDS: FERROUS SULFATE 325 MG EC TABLET PO SCH (06:09)
[2017-07-23] MEDS: ARIPiprazole 10 MG TABLET PO SCH (09:29)
[2017-07-23] MEDS: DOXYCYCLINE 100 MG CAPSULE PO SCH ×2 (09:29→16:22)
[2017-07-23] MEDS: DIVALPROEX SODIUM 500 MG DR TABLET PO SCH ×2 (09:29→16:22)
[2017-07-23 10:09] VITALS: BP 110/71
[2017-07-23 16:20] VITALS: BP 106/64
[2017-07-23] MEDS: OLANZapine 10 MG TABLET PO SCH (20:21)
[2017-07-24 03:14] VITALS: BP 124/73
[2017-07-24] MEDS: FERROUS SULFATE 325 MG EC TABLET PO SCH (06:32)
[2017-07-24 08:28] VITALS: BP 109/63
[2017-07-24] MEDS: DOXYCYCLINE 100 MG CAPSULE PO SCH (08:41)
[2017-07-24] MEDS: DIVALPROEX SODIUM 500 MG DR TABLET PO SCH (08:41)
[2017-07-24] MEDS: ARIPiprazole 10 MG TABLET PO SCH (08:41)
[2017-07-24] MEDS ORDERED: DOXY100C PO (08:50)
[2017-09-25] MEDS ORDERED: DIVA500T52 PO (19:46)
== END 2017-07-24 09:50 | disposition home or self-care (01) | DRG 750 ==
LOC: EMS 12:16 → B2S 16:41
PROVIDERS: ADMIT Psychiatry & Neurology Child & Adolescent Psychiatry; ATTEND Psychiatry & Neurology Child & Adolescent Psychiatry
DX: F20.0 Paranoid schizophrenia (principal); E86.0 Dehydration; I10 Essential (primary) hypertension; D64.9 Anemia, unspecified; F32.9 Major depressive disorder, single episode, unspecified; F41.9 Anxiety disorder, unspecified; Z91.19 Patient's noncompliance with other medical treatment and regimen
CPT/HCPCS: 84443; 87081; 90471; 96361; 96374; 99285; G0480; J2405; J7030

== ENCOUNTER 2017-07-29 20:44 | Emergency (ER) | payer MEDICAID, OTHER ==
[~2017-07-29] VITALS: Ht 162.6 cm; Wt 36.4 kg
[~2017-07-29 20:44] MED LIST changes: +DOXY100C PO
[2017-07-29 22:51] LABS: BASOPHILS % (AUTO) 1.3 % (0.0-2.0); EOSINOPHILS % (AUTO) 2.5 % (1.0-6.0); HEMATOCRIT 32.8 % (36-46); HEMOGLOBIN 10.9 g/dL (12.0-16.0); LYMPHOCYTES # (AUTO) 1.5 K/uL (1.0-4.8); LYMPHOCYTES % (AUTO) 23.3 % (22.0-44.0); MEAN CORPUSCULAR HEMOGLOBIN 27.1 pg (26.0-34.0); MEAN CORPUSCULAR HGB CONC 33.4 G/dL (31.0-37.0); MEAN CORPUSCULAR VOLUME 81 fL (80-100); MONOCYTES # (AUTO) 0.5 K/uL (0.1-1.0); MONOCYTES % (AUTO) 7.2 % (2.0-9.0); NEUTROPHILS # (AUTO) 4.2 K/uL (1.8-7.7); NEUTROPHILS % (AUTO) 65.7 % (40.0-70.0); PLATELET COUNT (AUTO) 258 K/uL (150-450); RED BLOOD CELL COUNT(AUTO) 4.04 MIL/uL (4.00-5.20); WHITE BLOOD COUNT (AUTO) 6.4 K/uL (4.5-11.0)
[2017-07-29 22:58] LABS: ANION GAP 6 mmol/L (8-16); CALCIUM, TOTAL 8.5 mg/dL (8.8-10.5); CARBON DIOXIDE 30 mmol/L (22-29); CHLORIDE 106 mmol/L (98-107); CREATININE 0.82 mg/dL (0.60-1.30); GLOMERULAR FILTR. RATE CALC > 60 mL/min (>60); POTASSIUM 4.1 mmol/L (3.5-5.1); SODIUM SERUM 142 mmol/L (136-145); UREA NITROGEN, BLOOD 16 mg/dL (7-18)
[2017-07-29 23:03] LABS: ALANINE AMINOTRANSFERASE 22 U/L (12-78); ALBUMIN 3.4 g/dL (3.4-5.0); ASPARTATE AMINOTRANSFERASE 21 U/L (15-37); BILIRUBIN,TOTAL 0.2 mg/dL (0.1-1.0); TOTAL PROTEIN, SERUM 6.7 g/dL (6.4-8.2)
[2017-07-30] MEDS: ACETAMINOPHEN 500 MG TABLET PO ONE (01:31)
[2017-07-30 01:38] VITALS: BP 119/63
[2017-09-25] MEDS ORDERED: DIVA500T52 PO (19:46)
== END 2017-07-30 01:39 | disposition home or self-care (01) ==
LOC: EMS 20:46
DX: F20.9 Schizophrenia, unspecified (principal); R51 Headache; R42 Dizziness and giddiness; Z91.14 Patient's other noncompliance with medication regimen
CPT/HCPCS: 36415; 80053; 80307; 85025; 99284; G0480

== ENCOUNTER 2017-08-02 18:33 | Inpatient (IN) | payer MEDICAID, OTHER ==
[~2017-08-02] VITALS: Ht 162.6 cm; Wt 43.5 kg
[2017-08-02 19:40] LABS: BASOPHILS # (AUTO) 0.08 K/uL (0.00-0.20); BASOPHILS % (AUTO) 1.5 % (0.0-2.0); EOSINOPHILS # (AUTO) 0.31 K/uL (0.00-0.70); HEMATOCRIT 32.7 % (36-46); HEMOGLOBIN 10.8 g/dL (12.0-16.0); LYMPHOCYTES # (AUTO) 1.5 K/uL (1.0-4.8); LYMPHOCYTES % (AUTO) 29.3 % (22.0-44.0); MEAN CORPUSCULAR HEMOGLOBIN 27.2 pg (26.0-34.0); MEAN CORPUSCULAR VOLUME 82 fL (80-100); MONOCYTES # (AUTO) 0.4 K/uL (0.1-1.0); MONOCYTES % (AUTO) 8.6 % (2.0-9.0); NEUTROPHILS # (AUTO) 2.8 K/uL (1.8-7.7); NEUTROPHILS % (AUTO) 54.5 % (40.0-70.0); PLATELET COUNT (AUTO) 234 K/uL (150-450); RED BLOOD CELL COUNT(AUTO) 3.97 MIL/uL (4.00-5.20); RED CELL DISTRIBUTION WIDTH 17.3 % (11.5-14.5); WHITE BLOOD COUNT (AUTO) 5.1 K/uL (4.5-11.0)
[2017-08-02 20:07] LABS: ANION GAP 7 mmol/L (8-16); CALCIUM, TOTAL 8.5 mg/dL (8.8-10.5); CARBON DIOXIDE 28 mmol/L (22-29); CHLORIDE 108 mmol/L (98-107); CREATININE 0.76 mg/dL (0.60-1.30); GLOMERULAR FILTR. RATE CALC > 60 mL/min (>60); POTASSIUM 3.8 mmol/L (3.5-5.1); SODIUM SERUM 143 mmol/L (136-145); UREA NITROGEN, BLOOD 10 mg/dL (7-18)
[2017-08-02 20:11] LABS: ALANINE AMINOTRANSFERASE 53 U/L (12-78); ALBUMIN 3.3 g/dL (3.4-5.0); ASPARTATE AMINOTRANSFERASE 45 U/L (15-37); BILIRUBIN,TOTAL 0.2 mg/dL (0.1-1.0); TOTAL PROTEIN, SERUM 6.7 g/dL (6.4-8.2)
[2017-08-02 20:12] LABS: VALPROIC ACID < 3 mcg/mL (50-100)
[2017-08-02 21:10] LABS: RBC MORPHOLOGY COMMENT ABNORMAL RBC MORPH
[2017-08-02] MEDS ORDERED: HALOPERIDOL 5 MG TABLET PO PRN (22:30)
[2017-08-02] MEDS ORDERED: LORazepam 2 MG TABLET PO PRN (22:30)
[2017-08-02] MEDS ORDERED: ZOLPIDEM TARTRATE 10 MG TABLET PO PRN (22:30)
[2017-08-03] MEDS ORDERED: PNEUMOCOCCAL VACCINE POLYVALENT 0.5 ML VIAL [PPSV23] IM ONE (01:00)
[2017-08-03 03:03] VITALS: BP 131/81
[2017-08-03 09:08] VITALS: BP 101/60
[2017-08-03] MEDS: DIVALPROEX SODIUM 500 MG DR TABLET PO SCH ×2 (10:26→16:18)
[2017-08-03 16:07] VITALS: BP 104/64
[2017-08-03] MEDS: OLANZapine 10 MG TABLET PO SCH (20:22)
[2017-08-04 04:54] VITALS: BP 106/64
[2017-08-04 08:36] VITALS: BP 80/62
[2017-08-04] MEDS: DIVALPROEX SODIUM 500 MG DR TABLET PO SCH ×2 (08:57→16:55)
[2017-08-04 16:12] VITALS: BP 102/63
[2017-08-04] MEDS: OLANZapine 10 MG TABLET PO SCH (20:18)
[2017-08-05 01:56] VITALS: BP 108/60
[2017-08-05] MEDS: DIVALPROEX SODIUM 500 MG DR TABLET PO SCH ×2 (08:23→16:19)
[2017-08-05 08:28] VITALS: BP 108/60
[2017-08-05 16:17] VITALS: BP 99/63
[2017-08-05 16:18] VITALS: BP 108/66
[2017-08-05] MEDS: OLANZapine 10 MG TABLET PO SCH (20:15)
[2017-08-06] VITALS: BP 101/64
[2017-08-06] MEDS: DIVALPROEX SODIUM 500 MG DR TABLET PO SCH ×2 (08:28→16:19)
[2017-08-06] MEDS: ARIPiprazole 10 MG TABLET PO SCH (08:28)
[2017-08-06 09:06] VITALS: BP 92/55
[2017-08-06 16:35] VITALS: BP 109/67
[2017-08-06] MEDS: OLANZapine 10 MG TABLET PO SCH (20:26)
[2017-08-07] MEDS: ARIPiprazole 10 MG TABLET PO SCH (08:30)
[2017-08-07] MEDS: DIVALPROEX SODIUM 500 MG DR TABLET PO SCH ×2 (08:30→17:21)
[2017-08-07 09:03] VITALS: BP 106/45
[2017-08-07 16:45] VITALS: BP 105/64
[2017-08-07] MEDS: OLANZapine 10 MG TABLET PO SCH (20:56)
[2017-08-08 00:01] VITALS: BP 103/60
[2017-08-08] MEDS: ARIPiprazole 10 MG TABLET PO SCH (08:36)
[2017-08-08] MEDS: DIVALPROEX SODIUM 500 MG DR TABLET PO SCH ×2 (08:36→17:23)
[2017-08-08 09:02] VITALS: BP 98/63
[2017-08-08 12:38] VITALS: BP 117/58
[2017-08-08 16:51] VITALS: BP 102/61
[2017-08-08] MEDS: OLANZapine 10 MG TABLET PO SCH (20:56)
[2017-08-09 00:51] VITALS: BP 110/62
[2017-08-09 08:23] VITALS: BP 92/63
[2017-08-09] MEDS: DIVALPROEX SODIUM 500 MG DR TABLET PO SCH ×2 (08:26→17:06)
[2017-08-09] MEDS: ARIPiprazole 10 MG TABLET PO SCH (08:26)
[2017-08-09 16:16] VITALS: BP 106/65
[2017-08-09] MEDS: OLANZapine 10 MG TABLET PO SCH (21:09)
[2017-08-10 00:05] VITALS: BP 105/66
[2017-09-25] MEDS ORDERED: DIVA500T52 PO (19:46)
== END 2017-08-10 08:00 | disposition home or self-care (01) | DRG 750 ==
LOC: EMS 18:35 → B2S 23:31
PROVIDERS: ADMIT Psychiatry & Neurology Child & Adolescent Psychiatry; ATTEND Psychiatry & Neurology Child & Adolescent Psychiatry
DX: F20.0 Paranoid schizophrenia (principal); R45.851 Suicidal ideations; Z59.0 Homelessness; I10 Essential (primary) hypertension; F32.9 Major depressive disorder, single episode, unspecified; D64.9 Anemia, unspecified; Z79.899 Other long term (current) drug therapy
CPT/HCPCS: 87081; 90471; 99285; G0480

== ENCOUNTER 2017-08-14 16:14 | Inpatient (IN) | payer MEDICAID, OTHER ==
[~2017-08-14] VITALS: Ht 157.5 cm; Wt 44.7 kg
[~2017-08-14 16:14] MED LIST changes: -DOXY100C PO; -FERR-89 PO
[2017-08-14 17:41] LABS: BASOPHILS % (AUTO) 0.9 % (0.0-2.0); EOSINOPHILS % (AUTO) 6.4 % (1.0-6.0); HEMATOCRIT 33.9 % (36-46); HEMOGLOBIN 11.5 g/dL (12.0-16.0); LYMPHOCYTES # (AUTO) 1.5 K/uL (1.0-4.8); LYMPHOCYTES % (AUTO) 23.9 % (22.0-44.0); MEAN CORPUSCULAR HEMOGLOBIN 27.6 pg (26.0-34.0); MEAN CORPUSCULAR HGB CONC 33.8 G/dL (31.0-37.0); MEAN CORPUSCULAR VOLUME 82 fL (80-100); MONOCYTES # (AUTO) 0.4 K/uL (0.1-1.0); NEUTROPHILS % (AUTO) 62.8 % (40.0-70.0); PLATELET COUNT (AUTO) 158 K/uL (150-450); RED BLOOD CELL COUNT(AUTO) 4.15 MIL/uL (4.00-5.20); RED CELL DISTRIBUTION WIDTH 17.2 % (11.5-14.5)
[2017-08-14 17:46] LABS: ANION GAP 4 mmol/L (8-16); CALCIUM, TOTAL 8.3 mg/dL (8.8-10.5); CARBON DIOXIDE 31 mmol/L (22-29); CHLORIDE 106 mmol/L (98-107); GLOMERULAR FILTR. RATE CALC > 60 mL/min (>60); GLUCOSE,RANDOM 95 mg/dL (70-110); POTASSIUM 3.9 mmol/L (3.5-5.1); SODIUM SERUM 141 mmol/L (136-145); UREA NITROGEN, BLOOD 11 mg/dL (7-18)
[2017-08-14 17:52] LABS: ALANINE AMINOTRANSFERASE 22 U/L (12-78); ALBUMIN 3.3 g/dL (3.4-5.0); ALKALINE PHOSPHATASE 71 U/L (46-116); ASPARTATE AMINOTRANSFERASE 20 U/L (15-37); BILIRUBIN,TOTAL 0.3 mg/dL (0.1-1.0); TOTAL PROTEIN, SERUM 6.7 g/dL (6.4-8.2)
[2017-08-14] MEDS ORDERED: LORazepam 2 MG TABLET PO PRN (18:00)
[2017-08-14] MEDS ORDERED: HALOPERIDOL 5 MG TABLET PO PRN (18:00)
[2017-08-14] MEDS ORDERED: ZOLPIDEM TARTRATE 10 MG TABLET PO PRN (18:00)
[2017-08-14 20:03] VITALS: BP 104/54
[2017-08-15 01:23] VITALS: BP 110/68
[2017-08-15 08:30] VITALS: BP 98/57
[2017-08-15 09:00] LABS: CHOL/HDL RATIO 2.2 (3.9-5.7)
[2017-08-15 16:13] VITALS: BP 113/68
[2017-08-15] MEDS: DIVALPROEX SODIUM 250 MG ER TABLET PO SCH (17:08)
[2017-08-16 00:30] VITALS: BP 110/65
[2017-08-16] MEDS: DIVALPROEX SODIUM 250 MG ER TABLET PO SCH ×2 (08:32→16:15)
[2017-08-16] MEDS: ARIPiprazole 10 MG TABLET PO SCH (08:32)
[2017-08-16 12:19] VITALS: BP 90/59
[2017-08-16 16:10] VITALS: BP 103/60
[2017-08-17 01:21] VITALS: BP 101/101
[2017-08-17 08:57] VITALS: BP 105/85
[2017-08-17] MEDS: ARIPiprazole 10 MG TABLET PO SCH (09:07)
[2017-08-17] MEDS: DIVALPROEX SODIUM 250 MG ER TABLET PO SCH ×2 (09:07→16:07)
[2017-08-17 16:39] VITALS: BP 101/61
[2017-08-18 01:19] VITALS: BP 101/60
[2017-08-18 07:52] LABS: BASOPHILS % (AUTO) 0.7 % (0.0-2.0); EOSINOPHILS % (AUTO) 7.4 % (1.0-6.0); HEMATOCRIT 36.7 % (36-46); HEMOGLOBIN 12.4 g/dL (12.0-16.0); LYMPHOCYTES # (AUTO) 1.5 K/uL (1.0-4.8); LYMPHOCYTES % (AUTO) 27.1 % (22.0-44.0); MEAN CORPUSCULAR HEMOGLOBIN 27.6 pg (26.0-34.0); MEAN CORPUSCULAR HGB CONC 33.8 G/dL (31.0-37.0); MEAN CORPUSCULAR VOLUME 82 fL (80-100); MONOCYTES # (AUTO) 0.6 K/uL (0.1-1.0); MONOCYTES % (AUTO) 9.8 % (2.0-9.0); NEUTROPHILS # (AUTO) 3.1 K/uL (1.8-7.7); PLATELET COUNT (AUTO) 182 K/uL (150-450); RED CELL DISTRIBUTION WIDTH 17.3 % (11.5-14.5)
[2017-08-18] MEDS: DIVALPROEX SODIUM 250 MG ER TABLET PO SCH ×2 (08:00→17:21)
[2017-08-18] MEDS: ARIPiprazole 10 MG TABLET PO SCH (08:03)
[2017-08-18 08:19] VITALS: BP 104/66
[2017-08-18 09:29] LABS: ALANINE AMINOTRANSFERASE 23 U/L (12-78); ALBUMIN 3.5 g/dL (3.4-5.0); ALKALINE PHOSPHATASE 66 U/L (46-116); ANION GAP 10 mmol/L (8-16); ASPARTATE AMINOTRANSFERASE 14 U/L (15-37); BILIRUBIN,TOTAL 0.4 mg/dL (0.1-1.0); CALCIUM, TOTAL 8.5 mg/dL (8.8-10.5); CARBON DIOXIDE 31 mmol/L (22-29); CHLORIDE 99 mmol/L (98-107); CREATININE 0.72 mg/dL (0.60-1.30); GLOMERULAR FILTR. RATE CALC > 60 mL/min (>60); GLUCOSE,RANDOM 71 mg/dL (70-110); POTASSIUM 3.8 mmol/L (3.5-5.1); SODIUM SERUM 140 mmol/L (136-145); TOTAL PROTEIN, SERUM 6.7 g/dL (6.4-8.2); UREA NITROGEN, BLOOD 15 mg/dL (7-18); VALPROIC ACID 63 mcg/mL (50-100)
[2017-08-18 17:31] VITALS: BP 101/60
[2017-08-19 06:54] VITALS: BP 103/87
[2017-08-19] MEDS: DIVALPROEX SODIUM 250 MG ER TABLET PO SCH ×2 (08:14→16:03)
[2017-08-19] MEDS: ARIPiprazole 10 MG TABLET PO SCH (08:15)
[2017-08-19 09:34] VITALS: BP 100/61
[2017-08-19 16:39] VITALS: BP 100/60
[2017-08-20] MEDS ORDERED: INFLUENZA VIRUS VACCINE QVS 2017-18 (3YR+)/PF 60 MCG/0.5 ML SYRINGE IM ONE (00:15)
[2017-08-20 00:29] VITALS: BP 101/69
[2017-08-20 08:26] VITALS: BP 102/59
[2017-08-20] MEDS: ARIPiprazole 10 MG TABLET PO SCH (08:49)
[2017-08-20] MEDS: DIVALPROEX SODIUM 250 MG ER TABLET PO SCH (08:49)
[2017-08-20] MEDS ORDERED: DIVA250T45 PO (09:49)
[2017-08-20] MEDS ORDERED: ARIP10TA8 PO (09:50)
[2017-09-25] MEDS ORDERED: DIVA500T52 PO (19:46)
== END 2017-08-20 10:30 | disposition home or self-care (01) | DRG 750 ==
LOC: EMS 16:15 → B2S 18:15
PROVIDERS: ADMIT Psychiatry & Neurology Child & Adolescent Psychiatry; ATTEND Psychiatry & Neurology Child & Adolescent Psychiatry
DX: F20.0 Paranoid schizophrenia (principal); I95.9 Hypotension, unspecified; R45.851 Suicidal ideations; Z59.0 Homelessness; D64.9 Anemia, unspecified; F32.9 Major depressive disorder, single episode, unspecified; Z79.899 Other long term (current) drug therapy
CPT/HCPCS: 87081; 93005; 99285; G0480

== ENCOUNTER 2017-08-24 17:57 | Inpatient (IN) | payer MEDICAID ==
[~2017-08-24] VITALS: Ht 162.6 cm; Wt 44.2 kg
[~2017-08-24 17:57] MED LIST changes: +DIVA250T45 PO; -DIVA500T35 PO; -OLAN10TA3 PO
[2017-08-24 18:30] VITALS: BP 110/54
[2017-08-24] MEDS ORDERED: HALOPERIDOL 5 MG TABLET PO PRN (19:00)
[2017-08-24] MEDS ORDERED: LORazepam 2 MG TABLET PO PRN (19:00)
[2017-08-24] MEDS ORDERED: ZOLPIDEM TARTRATE 10 MG TABLET PO PRN (19:00)
[2017-08-24] MEDS ORDERED: ACETAMINOPHEN 325 MG TABLET PO PRN (20:00)
[2017-08-24] MEDS ORDERED: IBUPROFEN 600 MG TABLET PO PRN (20:00)
[2017-08-24 20:14] LABS: APPEARANCE,URINE CLEAR (CLEAR); GLUCOSE, URINE (UA) NEGATIVE (NEGATIVE); KETONES,URINE TRACE mg/dL (NEGATIVE); LEUKOCYTE ESTERASE ,URINE NEGATIVE (NEGATIVE); OCCULT BLOOD,URINE NEGATIVE (NEGATIVE); PROTEIN,URINE NEGATIVE (NEGATIVE)
[2017-08-24 20:18] LABS: ADD UA MICROSCOPIC NO
[2017-08-25 04:58] VITALS: BP 128/58
[2017-08-25 05:46] LABS: BASOPHILS # (AUTO) 0.03 K/uL (0.00-0.20); BASOPHILS % (AUTO) 0.5 % (0.0-2.0); EOSINOPHILS # (AUTO) 0.27 K/uL (0.00-0.70); EOSINOPHILS % (AUTO) 4.88 % (1.0-6.0); HEMATOCRIT 39.7 % (36-46); HEMOGLOBIN 13.1 g/dL (12.0-16.0); LYMPHOCYTES # (AUTO) 1.7 K/uL (1.0-4.8); MEAN CORPUSCULAR HGB CONC 32.9 G/dL (31.0-37.0); MEAN CORPUSCULAR VOLUME 82 fL (80-100); MONOCYTES # (AUTO) 0.5 K/uL (0.1-1.0); MONOCYTES % (AUTO) 8.5 % (2.0-9.0); NEUTROPHILS # (AUTO) 3.1 K/uL (1.8-7.7); NEUTROPHILS % (AUTO) 55.2 % (40.0-70.0); PLATELET COUNT (AUTO) 273 K/uL (150-450); RED BLOOD CELL COUNT(AUTO) 4.83 MIL/uL (4.00-5.20); RED CELL DISTRIBUTION WIDTH 17.6 % (11.5-14.5); WHITE BLOOD COUNT (AUTO) 5.6 K/uL (4.5-11.0)
[2017-08-25 06:03] LABS: ALANINE AMINOTRANSFERASE 22 U/L (12-78); ANION GAP 7 mmol/L (8-16); ASPARTATE AMINOTRANSFERASE 20 U/L (15-37); BILIRUBIN,TOTAL 0.4 mg/dL (0.1-1.0); CALCIUM, TOTAL 9.3 mg/dL (8.8-10.5); CARBON DIOXIDE 29 mmol/L (22-29); CHLORIDE 102 mmol/L (98-107); CREATININE 0.82 mg/dL (0.60-1.30); GLOMERULAR FILTR. RATE CALC > 60 mL/min (>60); POTASSIUM 3.7 mmol/L (3.5-5.1); SODIUM SERUM 138 mmol/L (136-145); UREA NITROGEN, BLOOD 18 mg/dL (7-18)
[2017-08-25 06:34] LABS: RBC MORPHOLOGY COMMENT ABNORMAL RBC MORPH
[2017-08-25 09:00] VITALS: BP 105/66
[2017-08-25] MEDS: ARIPiprazole 10 MG TABLET PO SCH (09:58)
[2017-08-25] MEDS: DIVALPROEX SODIUM 250 MG ER TABLET PO SCH ×2 (10:00→17:24)
[2017-08-25 17:45] VITALS: BP 105/60
[2017-08-26] MEDS: DIVALPROEX SODIUM 250 MG ER TABLET PO SCH ×2 (09:07→17:05)
[2017-08-26] MEDS: ARIPiprazole 10 MG TABLET PO SCH (09:07)
[2017-08-26 09:56] VITALS: BP_SYST 101; BP_SYST 87; BP_DIAS 45; BP_DIAS 65
[2017-08-26 17:43] VITALS: BP 101/52
[2017-08-27 01:38] VITALS: BP 95/56
[2017-08-27] MEDS: DIVALPROEX SODIUM 250 MG ER TABLET PO SCH (09:19)
[2017-08-27] MEDS: ARIPiprazole 10 MG TABLET PO SCH (09:19)
[2017-08-27 10:53] VITALS: BP 111/70
[2017-08-27 16:44] VITALS: BP 121/87
[2017-08-27] MEDS: DIVALPROEX SODIUM 500 MG ER TABLET PO SCH (18:24)
[2017-08-28 02:32] VITALS: BP 88/52
[2017-08-28 08:05] VITALS: BP 106/65
[2017-08-28] MEDS: ARIPiprazole 10 MG TABLET PO SCH (10:18)
[2017-08-28] MEDS: DIVALPROEX SODIUM 500 MG ER TABLET PO SCH (10:18)
[2017-09-25] MEDS ORDERED: DIVA500T52 PO (19:46)
== END 2017-08-28 15:45 | disposition home or self-care (01) | DRG 750 ==
LOC: 3EI 18:00
PROVIDERS: ADMIT Psychiatry & Neurology Child & Adolescent Psychiatry; ATTEND Psychiatry & Neurology Child & Adolescent Psychiatry
DX: F20.0 Paranoid schizophrenia (principal); I10 Essential (primary) hypertension; F32.9 Major depressive disorder, single episode, unspecified
CPT/HCPCS: 87081

== ENCOUNTER 2017-09-03 17:16 | Emergency (ER) | payer MEDICAID, OTHER ==
[~2017-09-03] VITALS: Ht 162.6 cm; Wt 45.5 kg
[2017-09-03 18:30] LABS: BASOPHILS % (AUTO) 0.6 % (0.0-2.0); HEMATOCRIT 35.3 % (36-46); HEMOGLOBIN 11.9 g/dL (12.0-16.0); LYMPHOCYTES # (AUTO) 1.6 K/uL (1.0-4.8); LYMPHOCYTES % (AUTO) 22.3 % (22.0-44.0); MEAN CORPUSCULAR HEMOGLOBIN 27.7 pg (26.0-34.0); MEAN CORPUSCULAR HGB CONC 33.8 G/dL (31.0-37.0); MEAN CORPUSCULAR VOLUME 82 fL (80-100); MONOCYTES # (AUTO) 0.4 K/uL (0.1-1.0); MONOCYTES % (AUTO) 5.6 % (2.0-9.0); NEUTROPHILS # (AUTO) 4.8 K/uL (1.8-7.7); NEUTROPHILS % (AUTO) 68.5 % (40.0-70.0); PLATELET COUNT (AUTO) 272 K/uL (150-450); RED CELL DISTRIBUTION WIDTH 16.7 % (11.5-14.5)
[2017-09-03 18:46] LABS: ANION GAP 6 mmol/L (8-16); CARBON DIOXIDE 30 mmol/L (22-29); CHLORIDE 102 mmol/L (98-107); CREATININE 0.82 mg/dL (0.60-1.30); GLOMERULAR FILTR. RATE CALC > 60 mL/min (>60); POTASSIUM 3.9 mmol/L (3.5-5.1); SODIUM SERUM 138 mmol/L (136-145); UREA NITROGEN, BLOOD 15 mg/dL (7-18)
[2017-09-03 18:52] LABS: ALANINE AMINOTRANSFERASE 23 U/L (12-78); ALBUMIN 3.5 g/dL (3.4-5.0); ASPARTATE AMINOTRANSFERASE 15 U/L (15-37); BILIRUBIN,TOTAL 0.4 mg/dL (0.1-1.0)
[2017-09-03 22:00] VITALS: BP 148/65
[2017-09-03] MEDS ORDERED: LORazepam 1 MG TABLET PO ONE (22:00)
[2017-09-03] MEDS ORDERED: OLANZapine 5 MG TABLET PO ONE (22:00)
[2017-09-25] MEDS ORDERED: DIVA500T52 PO (19:46)
== END 2017-09-03 22:52 | disposition home or self-care (01) ==
LOC: EMS 17:19
DX: F20.0 Paranoid schizophrenia (principal); R45.851 Suicidal ideations; Z59.0 Homelessness
CPT/HCPCS: 36415; 80053; 85025; 99284; G0480

== ENCOUNTER 2017-09-05 18:48 | Inpatient (IN) | payer MEDICAID, OTHER ==
[~2017-09-05] VITALS: Ht 162.6 cm; Wt 45.1 kg
[2017-09-05] MEDS ORDERED: PNEUMOCOCCAL VACCINE POLYVALENT 0.5 ML VIAL [PPSV23] IM ONE (19:30)
[2017-09-05] MEDS ORDERED: INFLUENZA VIRUS VACCINE QVS 2017-18 (3YR+)/PF 60 MCG/0.5 ML SYRINGE IM ONE (19:30)
[2017-09-05 19:43] VITALS: BP 96/62
[2017-09-05] MEDS ORDERED: HALOPERIDOL 5 MG TABLET PO PRN (20:45)
[2017-09-05] MEDS ORDERED: LORazepam 1 MG TABLET PO PRN (20:45)
[2017-09-05] MEDS ORDERED: ZOLPIDEM TARTRATE 10 MG TABLET PO PRN (20:45)
[2017-09-05 20:49] VITALS: BP 95/59
[2017-09-05 21:32] VITALS: BP 102/63
[2017-09-06 06:34] VITALS: BP 100/62
[2017-09-06 07:50] LABS: BASOPHILS % (AUTO) 1.3 % (0.0-2.0); EOSINOPHILS % (AUTO) 6.2 % (1.0-6.0); HEMOGLOBIN 12.5 g/dL (12.0-16.0); LYMPHOCYTES # (AUTO) 1.4 K/uL (1.0-4.8); LYMPHOCYTES % (AUTO) 34.6 % (22.0-44.0); MEAN CORPUSCULAR HEMOGLOBIN 27.7 pg (26.0-34.0); MEAN CORPUSCULAR HGB CONC 33.8 G/dL (31.0-37.0); MEAN CORPUSCULAR VOLUME 82 fL (80-100); MONOCYTES # (AUTO) 0.3 K/uL (0.1-1.0); MONOCYTES % (AUTO) 6.8 % (2.0-9.0); NEUTROPHILS # (AUTO) 2.1 K/uL (1.8-7.7); NEUTROPHILS % (AUTO) 51.1 % (40.0-70.0); PLATELET COUNT (AUTO) 279 K/uL (150-450); RED BLOOD CELL COUNT(AUTO) 4.52 MIL/uL (4.00-5.20); RED CELL DISTRIBUTION WIDTH 16.6 % (11.5-14.5); WHITE BLOOD COUNT (AUTO) 4.1 K/uL (4.5-11.0)
[2017-09-06 08:34] LABS: ALANINE AMINOTRANSFERASE 24 U/L (12-78); ALBUMIN 3.7 g/dL (3.4-5.0); ANION GAP 8 mmol/L (8-16); ASPARTATE AMINOTRANSFERASE 19 U/L (15-37); BILIRUBIN,TOTAL 0.5 mg/dL (0.1-1.0); CALCIUM, TOTAL 8.4 mg/dL (8.8-10.5); CARBON DIOXIDE 29 mmol/L (22-29); CHLORIDE 103 mmol/L (98-107); CREATININE 0.83 mg/dL (0.60-1.30); GLOMERULAR FILTR. RATE CALC > 60 mL/min (>60); POTASSIUM 3.3 mmol/L (3.5-5.1); SODIUM SERUM 140 mmol/L (136-145); TOTAL PROTEIN, SERUM 7.2 g/dL (6.4-8.2); UREA NITROGEN, BLOOD 10 mg/dL (7-18); VALPROIC ACID 4 mcg/mL (50-100)
[2017-09-06 08:45] LABS: CHOL/HDL RATIO 2.5 (3.9-5.7)
[2017-09-06 08:56] VITALS: BP 102/54
[2017-09-06] MEDS ORDERED: IBUPROFEN 400 MG TABLET PO PRN (14:30)
[2017-09-06] MEDS ORDERED: ACETAMINOPHEN 325 MG TABLET PO PRN (14:30)
[2017-09-06 17:32] VITALS: BP 100/58
[2017-09-06] MEDS: DIVALPROEX SODIUM 500 MG ER TABLET PO SCH (17:42)
[2017-09-07 06:48] VITALS: BP 117/75
[2017-09-07] MEDS ORDERED: POTASSIUM CHLORIDE 20 MEQ ER TABLET PO ONE (08:00)
[2017-09-07] MEDS: ARIPiprazole 10 MG TABLET PO SCH (08:10)
[2017-09-07] MEDS: DIVALPROEX SODIUM 500 MG ER TABLET PO SCH ×2 (08:10→16:15)
[2017-09-07 08:52] VITALS: BP 101/70
[2017-09-07 16:42] VITALS: BP 109/77
[2017-09-08 06:23] VITALS: BP 101/62
[2017-09-08] MEDS: DIVALPROEX SODIUM 500 MG ER TABLET PO SCH ×2 (08:09→16:52)
[2017-09-08] MEDS: ARIPiprazole 10 MG TABLET PO SCH (08:09)
[2017-09-08 08:35] VITALS: BP 106/60
[2017-09-08 16:12] VITALS: BP 106/66
[2017-09-09 00:24] VITALS: BP 103/62
[2017-09-09 08:34] VITALS: BP 104/61
[2017-09-09] MEDS: ARIPiprazole 10 MG TABLET PO SCH (08:50)
[2017-09-09] MEDS: DIVALPROEX SODIUM 500 MG ER TABLET PO SCH ×2 (08:50→16:27)
[2017-09-09 16:17] VITALS: BP 104/65
[2017-09-10 03:53] VITALS: BP 99/62
[2017-09-10 08:11] VITALS: BP 103/69
[2017-09-10] MEDS: DIVALPROEX SODIUM 500 MG ER TABLET PO SCH ×2 (08:24→16:06)
[2017-09-10] MEDS: ARIPiprazole 10 MG TABLET PO SCH (08:24)
[2017-09-10 17:27] VITALS: BP 109/65
[2017-09-11 06:46] VITALS: BP 100/60
[2017-09-11 08:35] VITALS: BP 107/65
[2017-09-11] MEDS: ARIPiprazole 10 MG TABLET PO SCH (08:37)
[2017-09-11] MEDS: DIVALPROEX SODIUM 500 MG ER TABLET PO SCH (08:37)
[2017-09-25] MEDS ORDERED: DIVA500T52 PO (19:46)
== END 2017-09-11 13:20 | disposition home or self-care (01) | DRG 750 ==
LOC: EDSTATUS 20:57 → B2S 21:30
PROVIDERS: ATTEND Psychiatry & Neurology Child & Adolescent Psychiatry
DX: F20.0 Paranoid schizophrenia (principal); R45.851 Suicidal ideations; Z91.14 Patient's other noncompliance with medication regimen; I10 Essential (primary) hypertension; E02 Subclinical iodine-deficiency hypothyroidism; Z28.21 Immunization not carried out because of patient refusal; E87.6 Hypokalemia; Z59.0 Homelessness; F32.9 Major depressive disorder, single episode, unspecified; R51 Headache
CPT/HCPCS: 84132; 84439; 84443; 87081

== ENCOUNTER 2017-09-16 15:46 | Emergency (ER) | payer MEDICAID, OTHER ==
[~2017-09-16] VITALS: Ht 162.6 cm; Wt 45.5 kg
[2017-09-16 16:44] LABS: BASOPHILS % (AUTO) 0.6 % (0.0-2.0); EOSINOPHILS % (AUTO) 4.7 % (1.0-6.0); HEMATOCRIT 32.7 % (36-46); HEMOGLOBIN 11.1 g/dL (12.0-16.0); LYMPHOCYTES # (AUTO) 1.2 K/uL (1.0-4.8); LYMPHOCYTES % (AUTO) 22.8 % (22.0-44.0); MEAN CORPUSCULAR HGB CONC 33.9 G/dL (31.0-37.0); MEAN CORPUSCULAR VOLUME 82 fL (80-100); MONOCYTES # (AUTO) 0.4 K/uL (0.1-1.0); MONOCYTES % (AUTO) 7.9 % (2.0-9.0); NEUTROPHILS # (AUTO) 3.5 K/uL (1.8-7.7); PLATELET COUNT (AUTO) 199 K/uL (150-450); RED BLOOD CELL COUNT(AUTO) 3.96 MIL/uL (4.00-5.20); RED CELL DISTRIBUTION WIDTH 15.7 % (11.5-14.5); WHITE BLOOD COUNT (AUTO) 5.4 K/uL (4.5-11.0)
[2017-09-16 16:59] LABS: ANION GAP 5 mmol/L (8-16); CARBON DIOXIDE 28 mmol/L (22-29); CHLORIDE 104 mmol/L (98-107); CREATININE 0.73 mg/dL (0.60-1.30); GLOMERULAR FILTR. RATE CALC > 60 mL/min (>60); POTASSIUM 3.9 mmol/L (3.5-5.1); SODIUM SERUM 137 mmol/L (136-145); UREA NITROGEN, BLOOD 10 mg/dL (7-18)
[2017-09-16 17:04] LABS: ALANINE AMINOTRANSFERASE 19 U/L (12-78); ALBUMIN 3.3 g/dL (3.4-5.0); ASPARTATE AMINOTRANSFERASE 14 U/L (15-37); BILIRUBIN,TOTAL 0.3 mg/dL (0.1-1.0); TOTAL PROTEIN, SERUM 6.7 g/dL (6.4-8.2)
[2017-09-16 19:33] VITALS: BP 111/76
[2017-09-25] MEDS ORDERED: DIVA500T52 PO (19:46)
== END 2017-09-16 19:32 | disposition home or self-care (01) ==
LOC: EMS 15:48
DX: F20.0 Paranoid schizophrenia (principal); Z91.14 Patient's other noncompliance with medication regimen; Z59.0 Homelessness
CPT/HCPCS: 36415; 80053; 85025; 99284; G0480

== ENCOUNTER 2017-09-17 17:35 | Inpatient (IN) | payer MEDICAID, OTHER ==
[~2017-09-17] VITALS: Ht 162.6 cm; Wt 46.1 kg
[2017-09-17 19:27] LABS: BASOPHILS % (AUTO) 0.1 % (0.0-2.0); EOSINOPHILS % (AUTO) 4.5 % (1.0-6.0); HEMATOCRIT 34.8 % (36-46); HEMOGLOBIN 11.7 g/dL (12.0-16.0); LYMPHOCYTES # (AUTO) 1.5 K/uL (1.0-4.8); LYMPHOCYTES % (AUTO) 27.8 % (22.0-44.0); MEAN CORPUSCULAR HEMOGLOBIN 27.6 pg (26.0-34.0); MEAN CORPUSCULAR HGB CONC 33.7 G/dL (31.0-37.0); MEAN CORPUSCULAR VOLUME 82 fL (80-100); MONOCYTES # (AUTO) 0.4 K/uL (0.1-1.0); MONOCYTES % (AUTO) 7.7 % (2.0-9.0); NEUTROPHILS # (AUTO) 3.3 K/uL (1.8-7.7); NEUTROPHILS % (AUTO) 59.9 % (40.0-70.0); PLATELET COUNT (AUTO) 223 K/uL (150-450); RED BLOOD CELL COUNT(AUTO) 4.24 MIL/uL (4.00-5.20); RED CELL DISTRIBUTION WIDTH 15.5 % (11.5-14.5); WHITE BLOOD COUNT (AUTO) 5.5 K/uL (4.5-11.0)
[2017-09-17 19:33] LABS: ANION GAP 7 mmol/L (8-16); CARBON DIOXIDE 29 mmol/L (22-29); CHLORIDE 106 mmol/L (98-107); CREATININE 0.73 mg/dL (0.60-1.30); GLOMERULAR FILTR. RATE CALC > 60 mL/min (>60); POTASSIUM 3.2 mmol/L (3.5-5.1); SODIUM SERUM 142 mmol/L (136-145); UREA NITROGEN, BLOOD 8 mg/dL (7-18)
[2017-09-17 19:40] LABS: ALANINE AMINOTRANSFERASE 18 U/L (12-78); ALBUMIN 3.3 g/dL (3.4-5.0); ASPARTATE AMINOTRANSFERASE 14 U/L (15-37); BILIRUBIN,TOTAL 0.3 mg/dL (0.1-1.0); TOTAL PROTEIN, SERUM 6.8 g/dL (6.4-8.2)
[2017-09-17] MEDS: POTASSIUM CHLORIDE 20 MEQ ER TABLET PO ONE (23:49)
[2017-09-17] MEDS: KETOROLAC TROMETHAMINE 60 MG/2 ML VIAL IM ONE (23:49)
[2017-09-18] MEDS ORDERED: ZOLPIDEM TARTRATE 10 MG TABLET PO PRN
[2017-09-18] MEDS ORDERED: LORazepam 1 MG TABLET PO PRN
[2017-09-18] MEDS ORDERED: HALOPERIDOL 5 MG TABLET PO PRN
[2017-09-18] MEDS: KETOROLAC TROMETHAMINE 60 MG/2 ML VIAL IM ONE (00:28)
[2017-09-18] MEDS: POTASSIUM CHLORIDE 20 MEQ ER TABLET PO ONE (00:29)
[2017-09-18] MEDS ORDERED: INFLUENZA VIRUS VACCINE QVS 2017-18 (3YR+)/PF 60 MCG/0.5 ML SYRINGE IM ONE (02:45)
[2017-09-18 02:51] VITALS: BP 97/57
[2017-09-18 07:22] LABS: POTASSIUM 3.5 mmol/L (3.5-5.1)
[2017-09-18 08:23] LABS: GLUCOSE, URINE (UA) NEGATIVE (NEGATIVE); KETONES,URINE NEGATIVE (NEGATIVE); LEUKOCYTE ESTERASE ,URINE NEGATIVE (NEGATIVE); OCCULT BLOOD,URINE NEGATIVE (NEGATIVE); PROTEIN,URINE NEGATIVE (NEGATIVE)
[2017-09-18 08:39] LABS: APPEARANCE,URINE SLIGHTLY CLOUDY (CLEAR)
[2017-09-18 08:40] LABS: ADD UA MICROSCOPIC NO
[2017-09-18] MEDS: DIVALPROEX SODIUM 500 MG ER TABLET PO SCH ×2 (10:06→16:31)
[2017-09-18] MEDS: ARIPiprazole 10 MG TABLET PO SCH (10:06)
[2017-09-19 08:05] VITALS: BP 109/71
[2017-09-19] MEDS: DIVALPROEX SODIUM 500 MG ER TABLET PO SCH ×2 (09:24→16:41)
[2017-09-19] MEDS: ARIPiprazole 10 MG TABLET PO SCH (09:24)
[2017-09-19] MEDS ORDERED: IBUPROFEN 400 MG TABLET PO PRN (15:00)
[2017-09-19] MEDS ORDERED: ACETAMINOPHEN 325 MG TABLET PO PRN (15:00)
[2017-09-19 16:12] VITALS: BP 119/76
[2017-09-20 08:00] VITALS: BP 93/58
[2017-09-20] MEDS: DIVALPROEX SODIUM 500 MG ER TABLET PO SCH ×2 (09:02→16:05)
[2017-09-20] MEDS: ARIPiprazole 10 MG TABLET PO SCH (09:02)
[2017-09-20 16:30] VITALS: BP 110/67
[2017-09-21] MEDS: DIVALPROEX SODIUM 500 MG ER TABLET PO SCH (09:00)
[2017-09-21] MEDS: ARIPiprazole 10 MG TABLET PO SCH (09:00)
[2017-09-21 10:15] VITALS: BP 119/73
[2017-09-25] MEDS ORDERED: DIVA500T52 PO (19:46)
== END 2017-09-21 12:45 | disposition home or self-care (01) | DRG 750 ==
LOC: EMS 17:39 → 3EI 09-18 00:21
PROVIDERS: ADMIT Psychiatry & Neurology Child & Adolescent Psychiatry; ATTEND Psychiatry & Neurology Child & Adolescent Psychiatry
DX: F20.0 Paranoid schizophrenia (principal); R45.851 Suicidal ideations; Z91.14 Patient's other noncompliance with medication regimen; I10 Essential (primary) hypertension; E03.9 Hypothyroidism, unspecified; D64.9 Anemia, unspecified; E87.6 Hypokalemia; F32.9 Major depressive disorder, single episode, unspecified; F41.9 Anxiety disorder, unspecified; Z59.0 Homelessness; Z28.21 Immunization not carried out because of patient refusal
CPT/HCPCS: 80307; 84132; 87081; 99285; G0480; J1885

== ENCOUNTER 2017-09-25 20:34 | Inpatient (IN) | payer MEDICAID, OTHER ==
[~2017-09-25] VITALS: Ht 162.6 cm; Wt 45.2 kg
[2017-09-25 19:10] VITALS: BP 97/53
[~2017-09-25 20:34] MED LIST changes: +DIVA500T52 PO; +HALOPERIDOL 5 MG TABLET PO PRN; +LORazepam 1 MG TABLET PO PRN; +ZOLPIDEM TARTRATE 10 MG TABLET PO PRN
[2017-09-25] MEDS ORDERED: LORazepam 1 MG TABLET PO PRN (20:45)
[2017-09-25] MEDS ORDERED: ZOLPIDEM TARTRATE 10 MG TABLET PO PRN (20:45)
[2017-09-25 20:51] LABS: BASOPHILS % (AUTO) 0.5 % (0.0-2.0); HEMOGLOBIN 11.9 g/dL (12.0-16.0); LYMPHOCYTES # (AUTO) 1.7 K/uL (1.0-4.8); LYMPHOCYTES % (AUTO) 27.5 % (22.0-44.0); MEAN CORPUSCULAR HEMOGLOBIN 27.7 pg (26.0-34.0); MEAN CORPUSCULAR HGB CONC 33.9 G/dL (31.0-37.0); MEAN CORPUSCULAR VOLUME 82 fL (80-100); MONOCYTES # (AUTO) 0.5 K/uL (0.1-1.0); MONOCYTES % (AUTO) 8.7 % (2.0-9.0); NEUTROPHILS # (AUTO) 3.7 K/uL (1.8-7.7); NEUTROPHILS % (AUTO) 59.3 % (40.0-70.0); PLATELET COUNT (AUTO) 262 K/uL (150-450); RED BLOOD CELL COUNT(AUTO) 4.28 MIL/uL (4.00-5.20); RED CELL DISTRIBUTION WIDTH 15.1 % (11.5-14.5); WHITE BLOOD COUNT (AUTO) 6.3 K/uL (4.5-11.0)
[2017-09-25 21:12] LABS: ANION GAP 5 mmol/L (8-16); CALCIUM, TOTAL 8.7 mg/dL (8.8-10.5); CARBON DIOXIDE 32 mmol/L (22-29); CHLORIDE 102 mmol/L (98-107); CREATININE 0.89 mg/dL (0.60-1.30); GLOMERULAR FILTR. RATE CALC > 60 mL/min (>60); POTASSIUM 4.1 mmol/L (3.5-5.1); SODIUM SERUM 139 mmol/L (136-145); UREA NITROGEN, BLOOD 16 mg/dL (7-18)
[2017-09-25 21:18] LABS: ALANINE AMINOTRANSFERASE 29 U/L (12-78); ALBUMIN 3.3 g/dL (3.4-5.0); ASPARTATE AMINOTRANSFERASE 21 U/L (15-37); BILIRUBIN,TOTAL 0.3 mg/dL (0.1-1.0); TOTAL PROTEIN, SERUM 6.9 g/dL (6.4-8.2); VALPROIC ACID 4 mcg/mL (50-100)
[2017-09-25] MEDS ORDERED: INFLUENZA VIRUS VACCINE QVS 2017-18 (3YR+)/PF 60 MCG/0.5 ML SYRINGE IM ONE (21:45)
[2017-09-25] MEDS ORDERED: PNEUMOCOCCAL VACCINE POLYVALENT 0.5 ML VIAL [PPSV23] IM ONE (21:45)
[2017-09-25 22:24] VITALS: BP 103/61
[2017-09-26 12:52] VITALS: BP 97/55
[2017-09-26 20:19] VITALS: BP 101/63
[2017-09-26] MEDS: HALOPERIDOL 5 MG TABLET PO PRN (20:52)
[2017-09-27 02:54] VITALS: BP 105/61
[2017-09-27 09:48] VITALS: BP 97/51
[2017-09-27] MEDS: DIVALPROEX SODIUM 500 MG ER TABLET PO SCH ×2 (10:59→16:19)
[2017-09-27] MEDS: ARIPiprazole 10 MG TABLET PO SCH (14:01)
[2017-09-27] MEDS: HALOPERIDOL 5 MG TABLET PO PRN (16:19)
[2017-09-27 18:00] VITALS: BP 100/62
[2017-09-28 05:41] VITALS: BP 98/55
[2017-09-28 08:05] VITALS: BP 97/61
[2017-09-28] MEDS: ARIPiprazole 10 MG TABLET PO SCH (08:32)
[2017-09-28] MEDS: DIVALPROEX SODIUM 500 MG ER TABLET PO SCH ×2 (08:32→16:41)
[2017-09-28 17:06] VITALS: BP 112/67
[2017-09-29 05:46] VITALS: BP 110/60
[2017-09-29 08:00] VITALS: BP 107/52
[2017-09-29] MEDS: ARIPiprazole 10 MG TABLET PO SCH (09:42)
[2017-09-29] MEDS: DIVALPROEX SODIUM 500 MG ER TABLET PO SCH ×2 (09:43→17:26)
[2017-09-29 18:00] VITALS: BP 121/65
[2017-09-30 02:19] VITALS: BP 90/50
[2017-09-30 08:55] VITALS: BP 100/58
[2017-09-30] MEDS: DIVALPROEX SODIUM 500 MG ER TABLET PO SCH ×3 (09:00→17:14)
[2017-09-30] MEDS: ARIPiprazole 10 MG TABLET PO SCH (09:00)
[2017-09-30] MEDS: HALOPERIDOL 5 MG TABLET PO PRN (13:40)
[2017-09-30 17:00] VITALS: BP 108/79
[2017-10-01 09:58] VITALS: BP 121/74
[2017-10-01] MEDS: DIVALPROEX SODIUM 500 MG ER TABLET PO SCH ×2 (10:19→17:00)
[2017-10-01] MEDS: ARIPiprazole 10 MG TABLET PO SCH (10:19)
[2017-10-01 17:04] VITALS: BP 97/53
[2017-10-02 06:37] VITALS: BP 90/59
[2017-10-02] MEDS: DIVALPROEX SODIUM 500 MG ER TABLET PO SCH ×2 (09:11→16:44)
[2017-10-02] MEDS: ARIPiprazole 10 MG TABLET PO SCH (09:11)
[2017-10-02 09:32] VITALS: BP 104/66
[2017-10-02 16:52] VITALS: BP 102/60
[2017-10-03 04:31] VITALS: BP 85/58
[2017-10-03 08:49] VITALS: BP 95/66
[2017-10-03] MEDS: ARIPiprazole 10 MG TABLET PO SCH (09:45)
[2017-10-03] MEDS: DIVALPROEX SODIUM 500 MG ER TABLET PO SCH ×2 (09:45→16:10)
[2017-10-03 16:05] VITALS: BP 106/60
[2017-10-04 02:00] VITALS: BP 97/60
[2017-10-04] MEDS: ARIPiprazole 10 MG TABLET PO SCH (08:19)
[2017-10-04] MEDS: DIVALPROEX SODIUM 500 MG ER TABLET PO SCH ×2 (08:20→16:03)
[2017-10-04 08:52] VITALS: BP 123/65
[2017-10-04 17:16] VITALS: BP 110/67
[2017-10-05 06:13] VITALS: BP 108/66
[2017-10-05] MEDS: DIVALPROEX SODIUM 500 MG ER TABLET PO SCH (08:13)
[2017-10-05] MEDS: ARIPiprazole 10 MG TABLET PO SCH (08:13)
[2017-10-05 08:49] VITALS: BP 101/63
== END 2017-10-05 12:45 | disposition home or self-care (01) | DRG 750 ==
LOC: EMS 20:35 → AHU 21:30 → 3EI 09-26 10:14
PROVIDERS: ADMIT Psychiatry & Neurology Child & Adolescent Psychiatry; ATTEND Psychiatry & Neurology Child & Adolescent Psychiatry
DX: F20.0 Paranoid schizophrenia (principal); I95.9 Hypotension, unspecified; R45.851 Suicidal ideations; I10 Essential (primary) hypertension; D64.9 Anemia, unspecified; E02 Subclinical iodine-deficiency hypothyroidism; Z79.899 Other long term (current) drug therapy; Z59.0 Homelessness
CPT/HCPCS: 87081; 99285; G0480